=== PATIENT | female | born 1950 | race Caucasian/White ===

== ENCOUNTER 2017-04-06 08:25 | Outpatient (CLI) | payer MEDICARE ==
--- NOTE | 2017-04-06 10:06 | PRG ---
DATE OF SERVICE: 04/06/2017 HISTORY: Ms. Angie Marte is a very pleasant 66-year-old accompanied by her who pres ents to the [facility] for evaluation of multiple ulcerations of the right and left feet. For the ulceration over the dorsum of the left foot, the patient has completed a course of treatment with M atriStem. The patient has no complaints today. She denies any fever or chills. PHYSICAL EXAMINATION: VITAL SIGNS: Temperature 98.7, pulse 62, respirations 18, and blood pressure 180/85. EXTREMITIES: The ulceration over the dorsum of the left foot measures approximately 2.5 x 1.6 cm. The dimensions of the wound at the time of the patient's visit on 03/30/2017 were approximately 2.8 x 1.5 cm. The ulceration over the dorsum of the right foot measures approximately 2.2 x 1.1 cm. Th e dimensions of this wound at the time of the patient's last visit were 2.0 x 1.5 cm. Both wounds a re granulating. No purulent drainage is associated with either wound. No erythema of the skin surr ounding either wound is present. No maceration of the skin of the periwound of either wound is note d. No significant edema of the right or left foot is present on exam today. The ulceration over th e right heel is healing without complications or any signs of infection. The ulceration over the le ft heel has healed completely and remains healed. ASSESSMENT AND PLAN: 1. Ulcerations of right and left feet as described above. For the ulcerations of the right and lef t feet, Adaptic touch will be applied to the wounds followed by Webril and the [employer] Coban 2 layer comp ression systems applied without tension. I will see Ms. Marte again in 1 week. As stated above, the patient has completed a course of treatment with MatriStem for the ulceration over the dorsum of the left foot. 2. Hypertension. 3. Paraplegia. 4. Sjogrens.
[2017-04-06] MEDS ORDERED: Sodium Chloride 0.9% 15 ML NEB ONE (18:51)
== END 2017-04-06 08:26 | disposition home or self-care (01) ==
LOC: WCC 08:25
PROVIDERS: ATTEND Family Medicine
DX: L97.529 Non-pressure chronic ulcer of other part of left foot with unspecified severity (principal); L97.519 Non-pressure chronic ulcer of other part of right foot with unspecified severity; I10 Essential (primary) hypertension; G82.20 Paraplegia, unspecified; M35.00 Sjogren syndrome, unspecified
CPT/HCPCS: 29581; A4218

== ENCOUNTER 2017-04-13 08:43 | Outpatient (CLI) | payer MEDICARE ==
--- NOTE | 2017-04-13 10:13 | PRG ---
DATE OF SERVICE: 04/13/2017 HISTORY: Ms. Angie Marte is a very pleasant 66-year-old accompanied by her who pres ents to the [facility] Center for evaluation of multiple ulcerations of the right and left feet. For the ulceration over the dorsum of the left midfoot the patient has completed a course of treatment with MatriStem. The patient has no complaints today. She denies any fever or chills. PHYSICAL EXAMINATION: VITAL SIGNS: Temperature 97.9, pulse 67, respirations 18, blood pressure 176/76. EXTREMITIES: The ulceration over the dorsum of the left foot measures approximately 2.2 x 1.5 cm. The dimensions of the wound at the time of the patient's visit on 04/06/2017 were approximately 2.5 x 1.6 cm. The ulceration over the dorsum of the right foot measures approximately 1.6 x 1.2 cm. Th e dimensions of the wound at the time of the patient's last visit were approximately 2.2 x 1.1 cm. Both wounds are granulating. No purulent drainage is associated with either wound. No erythema of the skin surrounding either wound is present. No maceration of the skin of the periwound of either wound is noted. Edema of the left foot is present on exam today. The ulcerations over the right an d left heels have healed completely. ASSESSMENT AND PLAN: 1. Ulcerations of right and left feet as described above. For the ulcerations of the right and lef t feet Adaptic touch will be applied to the wound followed by Webril and the 3M Coban 2 layer compre ssion system applied without tension. I will see Ms. Marte again in 1 week. As stated above, the patient has completed a course of treatment with MatriStem for the ulceration over the dorsum of th e left foot. 2. Hypertension. 3. Paraplegia. 4. Sjogren's.
[2017-04-13] MEDS ORDERED: Sodium Chloride 0.9% 15 ML NEB ONE (11:11)
== END 2017-04-13 08:44 | disposition home or self-care (01) ==
LOC: WCC 08:43
PROVIDERS: ATTEND Family Medicine
DX: L97.529 Non-pressure chronic ulcer of other part of left foot with unspecified severity (principal); L97.519 Non-pressure chronic ulcer of other part of right foot with unspecified severity; I10 Essential (primary) hypertension; G82.20 Paraplegia, unspecified; M35.00 Sjogren syndrome, unspecified
CPT/HCPCS: 97602; A4218

== ENCOUNTER 2017-04-20 08:24 | Outpatient (CLI) | payer MEDICARE ==
--- NOTE | 2017-04-20 09:52 | PRG ---
DATE OF SERVICE: 04/20/2017 HISTORY: Ms. Angie Marte is a very pleasant 66-year-old, accompanied by her , who pr esents to the Wound Center for evaluation of multiple ulcerations of the right and left feet. For t he ulceration over the dorsum of the left midfoot, the patient has completed a course of treatment w rosa Abbott. Ms. Marte has no complaints today. She denies any fever or chills. PHYSICAL EXAMINATION: VITAL SIGNS: Temperature 98.1, pulse 62, respirations 18, blood pressure 186/82. EXTREMITIES: The ulceration over the dorsum of the left foot measures approximately 1.8 x 1.3 cm. The dimensions of the wound at the time of the patient's visit on 04/13/2017 were approximately 2.2 x 1.5 cm. The ulceration over the dorsum of the right foot measures approximately 1.5 x 1.3 cm. Th e dimensions of the wound at the time of the patient's last visit were approximately 1.6 x 1.2 cm. Both wounds are granulating. No purulent drainage is associated with either wound. No erythema of the skin surrounding either wound is present. No maceration of the skin of the periwound of either wound is noted. Dorsalis pedis pulse is palpable on the right and on the left. Edema of the left f oot is again noted on exam today. The ulcerations over the right and left heels have healed complet noemí and remain healed. ASSESSMENT AND PLAN: 1. Ulcerations of right and left feet as described above. For the ulcerations of the right and lef t feet, Adaptic Touch will be applied to the wounds, followed by Webril and the [employer] 2 layer com pression system applied without tension. I will see Ms. Marte again in 1 week. As stated above, the patient has completed a course of treatment with MatriStem for the ulceration over the dorsum of the left foot. The patient has been instructed to continue to utilize her Heelift boots at all sal es. 2. Hypertension. 3. Paraplegia. 4. Sjogren's.
[2017-04-20] MEDS ORDERED: Sodium Chloride 0.9% 15 ML NEB ONE (16:23)
== END 2017-04-20 08:25 | disposition home or self-care (01) ==
LOC: WCC 08:24
PROVIDERS: ATTEND Family Medicine
DX: L97.519 Non-pressure chronic ulcer of other part of right foot with unspecified severity (principal); L97.529 Non-pressure chronic ulcer of other part of left foot with unspecified severity; I10 Essential (primary) hypertension; G82.20 Paraplegia, unspecified; M35.00 Sjogren syndrome, unspecified
CPT/HCPCS: 29581; A4218

== ENCOUNTER 2017-04-27 08:41 | Outpatient (CLI) | payer MEDICARE ==
--- NOTE | 2017-04-27 09:59 | PRG ---
DATE OF SERVICE: 04/27/2017 HISTORY: Ms. Angie Marte is a very pleasant 67-year-old accompanied by her who pres ents to the [facility] Center for evaluation of multiple ulcerations of the right and left feet. For the ulceration over the dorsum of the left midfoot, the patient has completed a course of treatment wit h MatriStem. The patient has no complaints today. She denies any fever or chills. PHYSICAL EXAMINATION: VITAL SIGNS: Temperature 98.1, pulse 68, respirations 18, blood pressure 181/77. EXTREMITIES: The ulceration over the dorsum of the left foot measures approximately 1.5 x 1.0 cm. The dimensions of the wound at the time of the patient's visit on 04/20/2017 were approximately 1.8 x 1.3 cm. The ulceration over the dorsum of the right foot measures approximately 1.5 x 1.0 cm. Th e dimensions of the wound at the time of the patient's last visit were approximately 1.5 x 1.3 cm. Both wounds are granulating. No purulent drainage is associated with either wound. No erythema of the skin surrounding either wound is present. No maceration of the skin of the periwound of either wound is noted. Edema of the right and left feet is again noted on exam today. Ulcerations over th e right and left heels have healed completely and remain healed. ASSESSMENT AND PLAN: 1. Ulcerations of right and left feet as described above. For the ulcerations of the right and lef t feet, Adaptic Touch will be applied to the wound followed by Webril and the 3M Coban 2 layer compr ession system applied without tension. I will see Ms. Marte again in two weeks. The patient will return to the Wound Center in 1 week for a dressing change of Adaptic Touch, Webril, and 3M Coban 2 layer compression system applied without tension for the ulcerations of the right and left feet. A s stated above, the patient has completed a course of treatment with MatriStem for the ulceration ov er the dorsum of the left foot. The patient has been reminded to continue to utilize her Heelift duglas ot at all times. 2. Hypertension. 3. Paraplegia. 4. Sjogren's.
== END 2017-04-27 08:42 | disposition home or self-care (01) ==
LOC: WCC 08:41
PROVIDERS: ATTEND Family Medicine
DX: L97.529 Non-pressure chronic ulcer of other part of left foot with unspecified severity (principal); L97.519 Non-pressure chronic ulcer of other part of right foot with unspecified severity; I10 Essential (primary) hypertension; G82.20 Paraplegia, unspecified; M35.00 Sjogren syndrome, unspecified
CPT/HCPCS: 29581

== ENCOUNTER 2017-05-04 08:57 | Outpatient (CLI) | payer MEDICARE ==
[2017-05-04] MEDS ORDERED: Sodium Chloride 0.9% 15 ML NEB ONE (16:57)
== END 2017-05-04 08:58 | disposition home or self-care (01) ==
LOC: WCC 08:57
PROVIDERS: ATTEND Family Medicine
DX: L97.529 Non-pressure chronic ulcer of other part of left foot with unspecified severity (principal); L97.519 Non-pressure chronic ulcer of other part of right foot with unspecified severity
CPT/HCPCS: 29581; A4218

== ENCOUNTER 2017-05-11 08:43 | Outpatient (CLI) | payer MEDICARE ==
--- NOTE | 2017-05-11 10:30 | PRG ---
DATE OF SERVICE: 05/11/2017 HISTORY: Ms. Angie Marte is a very pleasant 67-year-old accompanied by her who pres ents to the [facility] Center for evaluation of multiple ulcerations of the right and left feet. For the ulceration over the dorsum of the left midfoot, the patient has completed a course of treatment wit h MatriStem. The patient has no complaints today. She denies any fever or chills. PHYSICAL EXAMINATION: VITAL SIGNS: Temperature 97.5, pulse 60, respirations 18, blood pressure 123/59. EXTREMITIES: The ulceration over the dorsum of the left foot measures approximately 1.5 x 0.9 cm. The dimensions of the wound at the time of the patient's visit on 04/27/2017 were approximately 1.5 x 1.0 cm. The ulceration over the dorsum of the right foot measures approximately 0.8 x 0.6 cm. Th e dimensions of the wound at the time of the patient's visit on 04/27/2017 were approximately 1.5 x 1.0 cm. Both wounds are granulating. No purulent drainage is associated with either wound. No tameka thema of the skin surrounding either wound is present. No maceration of the skin of the periwound o f either wound is noted. A dorsalis pedis pulse is palpable on the right and on the left. Edema of the right and left feet is again noted on today's exam. The ulcerations over the right and left he els have healed completely and remain healed. ASSESSMENT AND PLAN: 1. Ulcerations of right and left feet as described above. For the ulcerations of the right and lef t feet, Adaptic catch will be applied to the wounds followed by Webril and the [employer] Coban 2 layer comp ression system applied without tension. I will see Ms. Matre again in 1 week. As stated above, t he patient has completed a course of treatment with MatriStem for the ulceration over the dorsum of the left foot. The patient has been reminded to continue to utilize her Heelift boot at all times. 2. Hypertension. 3. Paraplegia. 4. Sjogrens.
[2017-05-11] MEDS ORDERED: Sodium Chloride 0.9% 15 ML NEB ONE (17:30)
== END 2017-05-11 08:44 | disposition home or self-care (01) ==
LOC: WCC 08:43
PROVIDERS: ATTEND Family Medicine
DX: L97.429 Non-pressure chronic ulcer of left heel and midfoot with unspecified severity (principal); L97.419 Non-pressure chronic ulcer of right heel and midfoot with unspecified severity; G82.20 Paraplegia, unspecified; M35.00 Sjogren syndrome, unspecified; I10 Essential (primary) hypertension
CPT/HCPCS: 29581; A4218

== ENCOUNTER 2017-05-18 08:55 | Outpatient (CLI) | payer MEDICARE ==
--- NOTE | 2017-05-18 10:45 | PRG ---
DATE OF SERVICE: 05/18/2017 HISTORY: Ms. Angie Marte is a very pleasant 67-year-old accompanied by her who presents to the [facility] Center for evaluation of multiple ulcerations of the right and left feet. For the ulceration over the dorsum of the left foot, the patient has completed a course of treatment with MatriStem. Ms. Marte has no complaints today. She denies any fever or chills. PHYSICAL EXAMINATION: VITAL SIGNS: Temperature 97.6, pulse 57, respirations 17, blood pressure 192/ 80. EXTREMITIES: The ulceration over the dorsum of the left foot measures approximately 1.0 x 0.8 cm. The dimensions of the wound at the time of the patient's visit on 05/11/2017 were approximately 1.5 x 0.9 cm. The ulceration over the dorsum of the right foot measures approximately 1.2 x 0.9 cm. The dimensions of the wound at the time of the patient's visit on 05/11/2017 were approximately 0.8 x 0.6 cm. Both wounds are granulating. No purulent drainage is associated with either wound. No erythema of the skin surrounding either wound is present. No maceration of the skin of the periwound of either wound is noted. Edema of the right and left feet is again noted on exam today. The ulcerations over the right and left heels have healed completely and remain healed. ASSESSMENT AND PLAN: 1. Ulcerations of right and left feet as described above. For the ulcerations of the right and left feet, Adaptic touch will be applied to the wounds followed by Webril and the 3M Coban 2-layer compression system applied without tension. I will see Ms. Marte again in 1 week. As stated above, the patient has completed a course of treatment with MatriStem for the ulceration over the dorsum of the left foot. The patient has been reminded to continue to utilize her Heelift boots at all times. 2. Hypertension. 3. Paraplegia. 4. Sjogren's. MTDD
[2017-05-18] MEDS ORDERED: Sodium Chloride 0.9% 15 ML NEB ONE (17:50)
== END 2017-05-18 08:56 | disposition home or self-care (01) ==
LOC: WCC 08:55
PROVIDERS: ATTEND Family Medicine
DX: L97.519 Non-pressure chronic ulcer of other part of right foot with unspecified severity (principal); L97.529 Non-pressure chronic ulcer of other part of left foot with unspecified severity; I10 Essential (primary) hypertension; G82.20 Paraplegia, unspecified; M35.00 Sjogren syndrome, unspecified
CPT/HCPCS: 29581; A4218

== ENCOUNTER 2017-06-01 08:30 | Outpatient (CLI) | payer MEDICARE ==
[~2017-06-01 08:30] MED LIST: Sodium Chloride 0.9% 15 ML NEB ONE
--- NOTE | 2017-06-01 10:40 | PRG ---
DATE OF SERVICE: 06/01/2017 HISTORY: Ms. Angie Marte is a very pleasant 67-year-old accompanied by her who presents to the [facility] Center for evaluation of multiple ulcerations of the right and left feet. For the ulce ration over the dorsum of the left foot the patient has completed a course of treatment with MatriSte m sheet. The patient has no complaints today. She denies any fever or chills. PHYSICAL EXAMINATION: VITAL SIGNS: Temperature 97.6, pulse 58, respirations 17, blood pressure 165/70. EXTREMITIES: The ulceration over the dorsum of the left foot measures approximately 0.7 x 0.6 cm. T he dimensions of the wound at the time of the patient's visit on 05/25/2017 were approximately 0.8 x 0.7 cm. The ulceration over the dorsum of the right foot measures approximately 0.5 x 0.5 cm. The d imensions of the wound at the time of the patient's visit on 05/25/2017 were approximately 0.7 x 0.8 cm. No purulent drainage is associated with either wound. No erythema of the skin surrounding eithe r wound is present. No maceration of the skin of the periwound of either wound is noted. Edema of t he right and left feet is again present on exam today. ASSESSMENT AND PLAN: 1. Ulcerations of right and left feet as described above. For the ulcerations of the right and left feet, MatriStem powder 20 mg was divided and placed to both wounds followed by Adaptic, Webril, and 3M Coban 2 layer compression system applied without tension. The patient will return to the Wound Ce nter in 1 week for a dressing change of Adaptic, Webril, and 3M Coban 2 layer compression system appl ied without tension to each wound. I will see Ms. Marte again in 2 weeks. The patient has been re minded to continue to utilize her Heelift boots at all times. 2. Lymphedema tarda. The patient continues to experience edema of the lower extremities, despite el evation and treatment with 3M Coban 2 layer compression system. Arrangements will be made for the in itiation of in-home lymphedema treatment with a pneumatic pump. 3. Hypertension. 4. Paraplegia. 5. Sjogren's.
== END 2017-06-01 08:31 | disposition home or self-care (01) ==
LOC: WCC 08:30
PROVIDERS: ATTEND Family Medicine
DX: L97.519 Non-pressure chronic ulcer of other part of right foot with unspecified severity (principal); L97.529 Non-pressure chronic ulcer of other part of left foot with unspecified severity; I89.0 Lymphedema, not elsewhere classified; G82.20 Paraplegia, unspecified; M35.00 Sjogren syndrome, unspecified; I10 Essential (primary) hypertension
CPT/HCPCS: 97139; 97602; Q4118; A4218

== ENCOUNTER 2017-06-12 08:38 | Outpatient (CLI) | payer MEDICARE ==
--- NOTE | 2017-06-12 09:40 | PRG ---
DATE OF SERVICE: 06/12/2017 HISTORY: Ms. Angie Marte is a very pleasant 67-year-old accompanied by her who presents to the [facility] Center for evaluation of multiple ulcerations of the right and left feet. For the ulce ration over the dorsum of the left foot, the patient has completed a course of treatment with MatriSt matilde donnelly. The patient has no complaints today. She denies any fever or chills. PHYSICAL EXAMINATION: VITAL SIGNS: Temperature 97.5, pulse 54, respirations 16, blood pressure 167/74. EXTREMITIES: The ulceration over the dorsum of the left foot measures approximately 0.7 x 0.6 cm. T he ulceration over the dorsum of the right foot measures approximately 1.1 x 1.0 cm. No purulent arlette inage is associated with either wound. No erythema of the skin surrounding either wound is present. No maceration of the skin of the periwound of either wound is noted. A posterior tibial pulse is ea sily palpable on the left. A dorsalis pedis pulse is easily palpable on the right. No significant e tono of the right or left foot is present on exam today. ASSESSMENT AND PLAN: 1. Ulcerations of right and left feet as described above. Adaptic, Webril, and 3M Coban two-layer c ompression system will be applied without tension to each wound. I will see Ms. Marte again on 01/2017. The patient has been reminded to continue to utilize her Heelift boots at all times. 2. Lymphedema tarda. Arrangements will continue for the initiation of in-home lymphedema treatment with a pneumatic pump. 3. Hypertension. 4. Paraplegia. 5. Sjogrens.
[2017-06-12] MEDS ORDERED: Sodium Chloride 0.9% 15 ML NEB ONE (17:45)
== END 2017-06-12 08:39 | disposition home or self-care (01) ==
LOC: WCC 08:38
PROVIDERS: ATTEND Family Medicine
DX: L97.529 Non-pressure chronic ulcer of other part of left foot with unspecified severity (principal); L97.519 Non-pressure chronic ulcer of other part of right foot with unspecified severity; I10 Essential (primary) hypertension; I89.0 Lymphedema, not elsewhere classified; G82.20 Paraplegia, unspecified; M35.00 Sjogren syndrome, unspecified
CPT/HCPCS: 29581; A4218

== ENCOUNTER 2017-06-22 08:13 | Outpatient (CLI) | payer MEDICARE ==
--- NOTE | 2017-06-22 09:12 | PRG ---
DATE OF SERVICE: 06/22/2017 HISTORY: Ms. Angie Marte is a very pleasant 67-year-old accompanied by her , who present s to the [facility] Center for evaluation of multiple ulcerations of the right and left feet for the ulcer ation over the dorsum of the left midfoot. The patient has completed a course of treatment with Matr iStem sheet. Ms. Marte has no complaints today. She denies any fever or chills. PHYSICAL EXAMINATION: VITAL SIGNS: Temperature 97.5, pulse 58, respirations 16, blood pressure 146/74. EXTREMITIES: The ulceration over the dorsum of the left foot measures approximately 0.2 x 0.2 cm. T he ulceration over the dorsum of the right foot measures approximately 0.9 x 0.6 cm. No purulent arlette inage is associated with either wound. No erythema of the skin surrounding either wound is present. No maceration of the skin of the periwound of either wound is noted. Pedal edema of the right and l eft feet is present on exam today. ASSESSMENT AND PLAN: 1. Ulcerations of right and left feet as described above. Dressing changes of Adaptic, ABDs followe d by an Eros bandage will be initiated today. These dressing changes are to be performed on a daily b asis after cleansing and irrigation. I will see Ms. Marte again in 2 weeks. The patient has been reminded to continue to utilize her Heelift boots at all times. 2. Lymphedema tarda. Arrangements will continue for the initiation of in-home lymphedema treatment with a pneumatic pump. 3. Hypertension. 4. Paraplegia. 5. Sjogren's.
== END 2017-06-22 08:14 | disposition home or self-care (01) ==
LOC: WCC 08:13
PROVIDERS: ATTEND Family Medicine
DX: L97.529 Non-pressure chronic ulcer of other part of left foot with unspecified severity (principal); L97.519 Non-pressure chronic ulcer of other part of right foot with unspecified severity; I89.0 Lymphedema, not elsewhere classified; I10 Essential (primary) hypertension; G82.20 Paraplegia, unspecified; M35.00 Sjogren syndrome, unspecified
CPT/HCPCS: 97602

== ENCOUNTER 2017-07-06 08:51 | Outpatient (CLI) | payer MEDICARE ==
--- NOTE | 2017-07-06 09:51 | PRG ---
DATE OF SERVICE: 07/06/2017 HISTORY: Ms. Angie Marte is a very pleasant 67-year-old accompanied by her , who present s to the [facility] Center for evaluation of multiple ulcerations of the right and left feet. For the ulc eration over the dorsum of the left midfoot, the patient has completed a course of treatment with Mat riStem sheet. The patient has no complaints today. She denies any fever or chills. PHYSICAL EXAMINATION: VITAL SIGNS: Temperature 97.9, pulse 56, respirations 16, and blood pressure 176/75. EXTREMITIES: The ulceration over the dorsum of the left foot measures approximately 0.2 x 0.1 cm. T he ulceration over the dorsum of the right foot has healed completely. No purulent drainage is assoc iated with either wound. No erythema of the skin surrounding either wound is present. No maceration of the skin of the periwound of either wound is noted. A dorsalis pedis pulse is palpable on the ri ght and on the left. No significant edema of the right or left foot or lower legs is present on exam today. ASSESSMENT AND PLAN: 1. Ulcerations of right and left feet. As stated above, only one wound over the dorsum of the left foot remains. Dressing changes of Adaptic and ABD, followed by an Eros bandage will be continued on a daily basis after cleansing and irrigation. The wound has almost healed completely and Ms. Marte will be discharged from clinic today with followup on a p.r.n. basis. The patient has been instructe d to continue the preceding dressing changes until the ulceration over the dorsum of the left foot waters s healed completely. 2. Lymphedema tarda. The patient states that she is now utilizing her pneumatic pump on a daily bas is for 1 hour for each lower extremity. 3. Hypertension. 4. Paraplegia. 5. Sjogren's.
[2017-07-06] MEDS ORDERED: Sodium Chloride 0.9% 15 ML NEB ONE (21:25)
== END 2017-07-06 08:52 | disposition home or self-care (01) ==
LOC: WCC 08:51
PROVIDERS: ATTEND Family Medicine
DX: L97.519 Non-pressure chronic ulcer of other part of right foot with unspecified severity (principal); L97.529 Non-pressure chronic ulcer of other part of left foot with unspecified severity; I89.0 Lymphedema, not elsewhere classified; I10 Essential (primary) hypertension; M35.00 Sjogren syndrome, unspecified; G82.20 Paraplegia, unspecified
CPT/HCPCS: A4218

== ENCOUNTER 2017-08-08 16:51 | Observation (INO) | payer MEDICARE ==
[2017-08-08 17:44] LABS: #Eosinphils 0.1 thou/uL (0.0-0.7); #Lymphocytes 2.2 thou/uL (1.20-3.40); #Monocytes 0.9 thou/uL (0.11-0.59); #Neutrophils 6.7 thou/uL (1.40-6.50); %Basophils 0.3 % (0.0-1.0); %Eosinophils 1.4 % (0.0-10.0); %Lymphocytes 22.3 % (21.0-51.0); %Monocytes 8.6 % (0.0-10.0); %Neutrophils 67.4 % (42.0-75.0); Mean Corpuscular HGB CONC 32.3 g/dL (32.0-36.0); Mean Corpuscular Hemoglobin 32.1 pg (27.0-31.0); Mean Corpuscular Volume 99.5 fl (81.0-99.0); Mean Platelet Volume 7.3 fL (7.4-10.4); Platelet Count 344 thou/uL (130-400); RBC Distribution Width 13.1 % (11.5-14.5); Red Blood Cell (RBC) Count 4.36 mill/uL (4.20-5.40); White Blood Cell (WBC) Count 9.9 thou/uL (4.8-10.8)
[2017-08-08 18:14] LABS: ALT (SGPT) 23 U/L (8-55); AST (SGOT) 23 U/L (5-34); Alkaline Phosphatase 111 U/L (40-150); Anion Gap 15 mmol/L (10-20); BUN (Urea Nitrogen) 23 mg/dL (9.8-20.1); Bilirubin, Total 0.3 mg/dL (0.2-1.2); Calc. Creatinine Clearance 0 mL/min (70-130); Calcium 10.8 mg/dL (7.8-10.44); Carbon Dioxide 23 mmol/L (23-31); Chloride 103 mmol/L (98-107); Estimated GFR-MDRD 62; Globulin 3.1 g/dL (2.4-3.5); Glucose 92 mg/dL (80-115); Lipase 24 U/L (8-78); Protein, Total 7.1 g/dL (6.0-8.3); Sodium 137 mmol/L (136-145)
--- NOTE | 2017-08-08 21:29 | RAD ---
PORTABLE CHEST 08/08/17 PROVIDED CLINICAL HISTORY: Altered mental status. FINDINGS: Comparison 04/08/17. The cardiac and mediastinal silhouette is unchanged in appearance. Vascular calcification involves th e aortic arch. No focal consolidation, pleural fluid or pneumothorax apparent. IMPRESSION: No evidence for an acute cardiopulmonary process. POS: CET
--- NOTE | 2017-08-08 22:59 | ULT ---
RIGHT LOWER EXTREMITY VENOUS DOPPLER 08/08/17 PROVIDED CLINICAL HISTORY: Right leg pain. FINDINGS: Bazzi scale and color doppler sonography with spectral analysis was performed of the right common femo ral, femoral, popliteal, posterior tibial, greater saphenous and profunda femoral veins, demonstratin g a normal sonographic appearance to each. There is a circumscribed hypoechoic elliptical mass presen t at the medial aspect of the right calf measuring about 10.4 cm in craniocaudal dimension and about 2.8 cm in transverse dimension. This demonstrates no definite internal flow. A smaller similar struct ures overlies the anterior right tibia measuring approximately 4.7 cm. Additional such structure is p resent at the lateral aspect of the right calf measuring about 6.2 cm. IMPRESSION: 1. No evidence for right lower extremity deep venous thrombosis. 2. Multiple circumscribed hypoechoic masses/complex fluid collections involving the right forele g. Correlation with concerns for abscess recommended. POS: CET
[2017-08-09 02:05] VITALS: BMI 26.1
[2017-08-09] MEDS ORDERED: Ondansetron ODT 4 MG TAB PO PRN (02:40)
[2017-08-09 05:12] LABS: #Eosinphils 0.2 thou/uL (0.0-0.7); #Lymphocytes 1.9 thou/uL (1.20-3.40); #Monocytes 1.1 thou/uL (0.11-0.59); #Neutrophils 5.8 thou/uL (1.40-6.50); %Basophils 0.5 % (0.0-1.0); %Eosinophils 1.7 % (0.0-10.0); %Lymphocytes 20.9 % (21.0-51.0); %Neutrophils 64.8 % (42.0-75.0); Hemoglobin 12.5 g/dL (12.0-16.0); Mean Corpuscular HGB CONC 32.8 g/dL (32.0-36.0); Mean Corpuscular Hemoglobin 32.5 pg (27.0-31.0); Mean Corpuscular Volume 98.9 fl (81.0-99.0); Platelet Count 315 thou/uL (130-400); RBC Distribution Width 12.9 % (11.5-14.5); Red Blood Cell (RBC) Count 3.83 mill/uL (4.20-5.40)
[2017-08-09 05:27] LABS: Anion Gap 12 mmol/L (10-20); BUN (Urea Nitrogen) 21 mg/dL (9.8-20.1); Calc. Creatinine Clearance 71 mL/min (70-130); Calcium 9.5 mg/dL (7.8-10.44); Carbon Dioxide 26 mmol/L (23-31); Chloride 105 mmol/L (98-107); Estimated GFR-MDRD 70; Glucose 111 mg/dL (80-115); Potassium 3.8 mmol/L (3.5-5.1); Sodium 139 mmol/L (136-145)
--- NOTE | 2017-08-09 06:13 | HP-2 ---
ADMISSION DATE: 08/09/2017 CODE STATUS: FULL. PRIMARY CARE PHYSICIAN: Dr. Rachel Gutierrez in [place]. ATTENDING: Dr. Marianne Mills. RESIDENT: Dr. Poly Abreu. HISTORIAN: Self. CHIEF COMPLAINT: Right lower extremity swelling. HISTORY OF PRESENT ILLNESS: A 67-year-old female with past medical history of paraplegia secondary t o a T12 burst fracture, hypertension, Sjogren's syndrome, chronic lower extremity ulcers who presents with right lower extremity swelling once for the past one and a half weeks. The patient was started on Levaquin and clindamycin by her PCP about 8 days ago and has completed Levaquin, but still has a few days of the clindamycin. She reports that she has not had any improvement in her symptoms. She has never had any swelling in her legs like this before. She does have chronic lymphedema that prese nts as swelling predominantly in her feet and however, it has never progressed thus far per her age o r looks like this in the past. She has had fever to 101 about 1 week ago just for 1 day. She has waters d no pain in her leg, but the patient has no feeling from the waist down at baseline from her acciden t about 1 year ago. She had blisters that popped up on the top of her right leg about 3-4 days ago. In the ER, she was given vancomycin 1 gram. PAST MEDICAL HISTORY: 1. Paralyzed from the waist down secondary to T12 burst fracture on 07/2016. 2. Hypertension. 3. Sjogren's syndrome. 4. Depression. PAST SURGICAL HISTORY: Left carpal tunnel surgery, kidney surgery, bunion surgeries, left arm surger y. ALLERGIES: AMBIEN, AMOXICILLIN causes hives, SULFA causes gastrointestinal upset, CODEINE. MEDICATIONS: 1. Quinapril 40 mg daily. 2. Biotin. 3. Aspirin 81 mg daily. 4. Gabapentin 400 mg 2 tabs b.i.d. 5. Andrews 5/325 mg q.8 hours p.r.n. 6. Bupropion 300 mg q.a.m. 7. Seroquel 50 mg at bedtime. 8. Fluoxetine 20 mg daily. 9. Restasis twice daily. 10. Temazepam at bedtime. 11. Tramadol p.r.n. pain. FAMILY HISTORY: Dad has leukemia. Mom with pancreatic cancer. SOCIAL HISTORY: Former tobacco user, smoked less than 10 pack years. Denies alcohol or drug use. T he patient lost her son in 2013. REVIEW OF SYSTEMS: General: Positive for fever, chills. Negative for fatigue. Eyes: Negative for vision changes or eye pain. ENT: Negative for nasal congestion, rhinorrhea, sore throat. Respirat ory: Negative for cough, shortness of breath. Cardiovascular: Negative for chest pain. Positive f or edema. GI: Positive for nausea. Negative for vomiting, diarrhea, constipation. Positive for ab dominal pain. GENITOURINARY: Positive for incontinence at baseline. Skin: Positive for rashes and lesions, negative for itching. Musculoskeletal: Positive for pain. Negative for tenderness. Neur ologic: Positive for weakness and numbness. PHYSICAL EXAMINATION: VITAL SIGNS: Her blood pressure 141/65, pulse 59, respiratory rate 18, temperature 98.5, pulse ox 98 % on room air. Current weight 68 kilograms. GENERAL: Alert and oriented x3, no acute distress, well-nourished, appropriately interactive. HEENT: PERRLA. Extraocular muscles intact. Conjunctivae within normal limits. ENT: Nasal mucosa and oropharynx within normal limits. NECK: Supple, no lymphadenopathy. CARDIOVASCULAR: Regular rate and rhythm. No murmurs or gallops, 2+ radial pulses, difficult to palp ate pedal pulses due to swelling. RESPIRATORY: Normal effort, no retractions, clear to auscultation bilaterally. SKIN: Warm and dry. No cyanosis. Right lower extremity erythema, edema, and warmth with overlying hexagonal blisters. Unable to palpate any areas of fluctuance. Edema was pitting up to the mid ibarra and erythema extended from just above the ankle to a few centimeters below the knee. ABDOMEN: Soft, mildly tender to palpation, diffusely with no rebound or guarding. Normoactive bowel sounds. No mass or distention. EXTREMITIES: No cyanosis. 2+ pitting edema on the right lower extremity to the mid ibarra, trace emili ing edema on the left foot. MUSCULOSKELETAL: Decreased tone in bilateral lower extremities, 0/5 muscle strength in bilateral low er extremities. NEUROLOGIC: No sensation in the lower extremities, clonus in bilateral lower extremities. Positive Babinski, 4/4 deep tendon reflexes in bilateral lower extremities. Cranial nerves II through XII int act. GCS 15. PSYCHIATRIC: Appropriate. LABORATORY DATA: WBC 9.9, hemoglobin 14.0, hematocrit 43.4, platelets 344. Sodium 137, potassium 4, chloride 103, CO2 of 23, BUN 23, creatinine 0.9, GFR 62, glucose 92, calcium 10.8, AST 23, ALT 23, a lkaline phosphatase 111, total bilirubin 0.3, lactic acid 0.9, lipase 24. Chest x-ray showed no evid ence of acute cardiopulmonary process. Right lower extremity Doppler that showed no evidence of DVT, but showed multiple hypoechoic masses/complex fluid collections involving the right foreleg. Correl ation with concern for abscess is recommended. ASSESSMENT AND PLAN: This is a 67-year-old female who presents with: 1. Right lower extremity cellulitis. Patient has failed outpatient therapy with clindamycin and Lev aquin. There is concern for underlying abscesses with these complex fluid collection seen on lower e xtremity Doppler ultrasound. Differential diagnosis is cellulitis with abscesses versus erythema nod osum or other vasculitis versus autoimmune. With the patient's history of Sjogren's syndrome versus lichen planus with the overlying polygonal lesions versus worsening lymphedema; however, less likely as it is only on one side. We will start treatment with vancomycin. We will check blood cultures an d ESR. We will consult Dr. Parra in the morning as this does not appear to be straightforward cellul itis. The patient may need a general surgery consult if the fluid collections do appear to be absces ses and require I and D. 2. Paraplegia secondary to T12 burst fracture. Patient has been paralyzed from the waist down since injury in 07/2016, she has good upper body strength, but needed assistance with transferring. We wi ll continue home meds for pain and sleep. The patient's lack of sensation in her lower extremity neyda ing a diagnosis on her disease process more difficult. 3. Hypertension. This is well controlled. We will continue home medications. 4. Sjogren's syndrome. The patient uses Restasis drops daily, but is not currently on any oral medi cation. She was taking hydroxychloroquine, but was taken off this. With the patient's autoimmune hi story, we will watch for any correlation with this current disease process. 5. Depression. The patient lost her son in 2013 and has had depression since this time. We will co ntinue her home meds. She appears stable at this time. 6. Chronic kidney disease stage 2. Patient appears near baseline, tolerating p.o. well. Encourage p.o. intake and monitor. The patient was having some nausea with her oral antibiotics. We will give p.r.n. Zofran, if the patient has nausea with the vancomycin. 7. VTE prophylaxis. Lovenox. DISPOSITION AND LENGTH OF HOSPITAL STAY: Obs on medical likely 1-2 days. Symptomatic medications wi ll be provided. History and physical exam as well as management discussed with Dr. Mills.
[2017-08-09] MEDS: HYDROcodone/Acetaminophen 5/325 mg Tablet PO PRN ×2 (08:22→17:56)
[2017-08-09] MEDS: Aspirin 81 mg Enteric Coated Tablet PO SCH (08:24)
[2017-08-09] MEDS: Gabapentin 400 MG CAP PO SCH ×2 (08:24→20:42)
[2017-08-09] MEDS: Enoxaparin Sodium 40 MG/0.4 ML SYRINGE SC SCH (08:25)
[2017-08-09] MEDS: Bupropion 150 MG XL TAB PO SCH (08:25)
[2017-08-09] MEDS: FLUoxetine HCl 20 MG CAP PO SCH (08:27)
[2017-08-09] MEDS ORDERED: Vancomycin HCl 1 GM in Premix Bag 1 BAG IVPB SCH (09:00)
[2017-08-09] MEDS: cycloSPORINE 0.05% Ophthalmic Droperette EA EYE SCH ×3 (10:22→20:43)
[2017-08-09] MEDS: Vancomycin HCl 1 GM in Premix Bag 1 BAG IVPB SCH (11:52)
[2017-08-09 11:53] LABS: INR-International Normal Ratio 1.1; Prothrombin Time 13.9 SEC (12.0-14.7)
[2017-08-09 11:54] LABS: PTT 36.2 SEC (22.9-36.1)
--- NOTE | 2017-08-09 12:38 | HP ---
DATE OF SERVICE: 08/09/2017 CHIEF COMPLAINT: Right lower extremity swelling. HISTORY OF PRESENT ILLNESS: The patient is a 67-year-old female with a past medical history of parap legia secondary to T12 burst fracture about a year ago, hypertension, Sjogren syndrome, and chronic l ower extremity ulcers, who presented to the ER with right lower extremity swelling for 7-10 days. Sabas middleton has seen her PCP as an outpatient and was started on oral antibiotics including Levaquin and cl indamycin. She did not see any improvement and the swelling seemed to worsen. She has some chronic lymphedema, but the swelling is more than what her baseline is. In the ER, she had an ultrasound nicole t showed no evidence of DVT, but multiple hypoechoic masses and complex fluid collections in the righ t foreleg. The patient has been started on vancomycin. She denies any complaints this morning, but is concerned about the swelling in her legs. The patient will be continued on vancomycin and Dr. Derek gentile has been consulted. We will also get Interventional Radiology to see if they can pull also the fl uid in one of the pockets to test. We will also consult Wound Care and restart home medications. I have reviewed history and physical with Dr. Poly Abreu and discuss the case in detail. I repeated p ertinent portions of the history and physical exam and agree with her documentation. Please see her dictation for the full history and physical and assessment and plan.
--- NOTE | 2017-08-09 17:39 | CON ---
DATE OF CONSULTATION: 08/09/2017 REASON FOR CONSULTATION: Possible cellulitis, right leg. HISTORY OF PRESENT ILLNESS: A 67-year-old patient that I had seen in November of last year when she prese nted with a history of Sjogren syndrome and paraplegia following an accident with a horse. Patient w ears an orthotic boot for the right and left feet and developed ulcers. I was asked to evaluate thos e ulcers and the impression was that she had traumatic ulcers in the feet associated with tight fitti ng orthotic and cellulitis associated with it. The patient was given antimicrobials. She had an liliane luation by Dr. Villalobos regarding her vascular status and he felt that there was evidence of normal circ ulation. No need for a further intervention was recommended. Since then, the ulcers have markedly i mproved and healed almost flush against the surface previous exposure of the tendon has resolved and this time she was brought in with worsening right lower extremity swelling. She had been given oral antimicrobials with Levaquin and clindamycin without improvement. She had an ultrasound which showed hypoechoic areas which reflected fluid collections in the leg. She said she had some fever document ed I do not find it here in the record. No headaches, visual symptoms, sore throat, odynophagia, dys phagia, no cough or sputum production, or chest pain, no vomiting, hematemesis, melena, hematochezia. No diarrhea. PAST MEDICAL HISTORY: Hypertension, Sjogren's syndrome, biopsy proven, paraplegia following fall fro m a horse, ulcers in the lower extremities from tight fitting Orthotics which have almost completely healed since November of last year. PAST SURGICAL HISTORY: Left knee surgery, bunionectomies. CURRENT MEDICATIONS: Hydrocodone, aspirin, Wellbutrin, Lovenox, Prozac, Neurontin, Zofran, Seroquel, Accupril, and vancomycin. ALLERGIES: CODEINE, AMOXICILLIN, SULFA DRUGS. SOCIAL HISTORY: Former smoker, lives in [place] with her . FAMILY HISTORY: Diabetes. PHYSICAL EXAMINATION: SKIN: Examination shows the marked improvement in the appearance of the ulcers in the right and left feet and they almost completely healed, little bit of scabbing at the base. She has edema in the ri ght leg, but no obvious erythema noted. No lymphadenopathy. HEENT: Ocular movements are conjugate. Sclerae white. Pupils are equal. Oral cavity normal. NECK: Supple. LUNGS: With symmetric clear breath sounds. HEART: S1, S2, regular rate. No S3 or S4. ABDOMEN: Soft, not distended or tender. No ascites. No bladder distention. EXTREMITIES: The right leg has an area which has the cystic feel on palpation close to the medial as pect of the right leg right below the patella/knee region, right side. After cleaning the area and u sing 22 gauge needle, I was able to aspirate which appeared to be fresh blood from the area kind of d ark colored. I was able to aspirate about 5 mL of blood from the site. LABORATORY DATA AND IMAGING: The white cell count is 9.9, hemoglobin 14, platelets 344. INR was 1.1 and chemistry was not remarkable except for calcium 10.8, now 9.5. Two sets of blood cultures have been submitted and she has a chest x-ray which did not show any infiltrates and has this vascular ult rasound which demonstrated hypoechoic complex fluid collections in the right foreleg. ASSESSMENT: 1. Paraplegia following horse accident. 2. Marked improvement in previously noted ulcers in November last year. 3. Hypoechoic fluid collection associated with swelling of the right leg. DISCUSSION: The fluid obtained from the cystic area in the right leg is a hemorrhagic fluid and I waters ve submitted for cell count and cultures. It does not appear purulent and I would presume that this is not an infected fluid. It is not clear why she has developed this, but I inquired her about any t rauma to the right leg and she denied recalling any such event, although she has no sensation in the right leg and one could conceivably envision this situation where she was hit, but did not realize it , so it is most likely this is going to jewel bearing turner not to be an infectious process in the all traumatic in nature with those areas of hematoma formation.
[2017-08-10] MEDS: Vancomycin HCl 1 GM in Premix Bag 1 BAG IVPB SCH ×2 (00:24→12:12)
[2017-08-10 03:09] LABS: BF Color Red; Clarity Cloudy/Turbid (Clear); Tube # EDTA
[2017-08-10 03:10] LABS: RBC Count-Automated 1170000 /cumm; WBC/NonHematic-Auto 6130 /cumm
[2017-08-10 03:12] LABS: BF Segmented Neutrophils 76 %; Cell Count Non Hematic 4 %; Lymphocytes 20 %
[2017-08-10 05:42] LABS: #Eosinphils 0.1 thou/uL (0.0-0.7); #Lymphocytes 1.9 thou/uL (1.20-3.40); #Monocytes 0.8 thou/uL (0.11-0.59); #Neutrophils 2.7 thou/uL (1.40-6.50); %Basophils 0.5 % (0.0-1.0); %Eosinophils 2.4 % (0.0-10.0); %Lymphocytes 33.9 % (21.0-51.0); %Neutrophils 49.2 % (42.0-75.0); Hemoglobin 10.6 g/dL (12.0-16.0); Mean Corpuscular HGB CONC 33.1 g/dL (32.0-36.0); Mean Corpuscular Hemoglobin 33.2 pg (27.0-31.0); Mean Platelet Volume 7.7 fL (7.4-10.4); Platelet Count 276 thou/uL (130-400); White Blood Cell (WBC) Count 5.5 thou/uL (4.8-10.8)
[2017-08-10 05:57] LABS: Anion Gap 12 mmol/L (10-20); BUN (Urea Nitrogen) 15 mg/dL (9.8-20.1); Calc. Creatinine Clearance 68 mL/min (70-130); Calcium 8.7 mg/dL (7.8-10.44); Carbon Dioxide 26 mmol/L (23-31); Chloride 106 mmol/L (98-107); Estimated GFR-MDRD 66; Glucose 81 mg/dL (80-115); Potassium 3.6 mmol/L (3.5-5.1); Sodium 140 mmol/L (136-145)
--- NOTE | 2017-08-10 08:55 | PDOC.FM ---
- Subjective Subjective: Patient doing well overnight, feels swelling in leg has improved overnight. No N /V, CP, SOB. - Objective MAR Reviewed: Yes Vital Signs & Weight: Vital Signs (12 hours) Temp Pulse Resp BP Pulse Ox 08/10/17 04:00 97.9 F 60 18 97/50 L 92 L 08/10/17 00:00 98 F 63 18 106/64 92 L Weight Weight 69.082 kg I&O: 08/09/17 08/10/17 08/11/17 06:59 06:59 06:59 Intake Total 300 1210 Output Total 2 Balance 300 1208 Result Diagrams: 08/10/17 03:50 08/10/17 03:50 <Celso Toure - Last Filed: 08/10/17 08:53> - Objective Vital Signs & Weight: Vital Signs (12 hours) Temp Pulse Resp BP BP Pulse Ox 08/10/17 09:51 112/56 L 08/10/17 04:00 97.9 F 60 18 97/50 L 92 L 08/10/17 00:00 98 F 63 18 106/64 92 L Weight Weight 69.082 kg I&O: 08/09/17 08/10/17 08/11/17 06:59 06:59 06:59 Intake Total 300 1210 Output Total 2 Balance 300 1208 Result Diagrams: 08/10/17 03:50 08/10/17 03:50 <Marianne Mills - Last Filed: 08/10/17 10:50> Phys Exam - Physical Examination Constitutional: NAD HEENT: moist MMs Respiratory: no wheezing, clear to auscultation bilateral Cardiovascular: RRR, no significant murmur Gastrointestinal: soft mild guarding, improved from yesterday Musculoskeletal: pulses present stable Psychiatric: normal affect, A&O x 3 Deviation from normal: erythema on left leg improved <Celso Toure - Last Filed: 08/10/17 08:53> Dx/Plan (1) Leg swelling Code(s): M79.89 - OTHER SPECIFIED SOFT TISSUE DISORDERS Status: Acute Plan: Dr. Parra consulted, recs greatly appreciated Fluid pocket drained yesterday and suspected to be mainly hematoma Will await labs on fluid sample improving today (2) PVD (peripheral vascular disease) Code(s): I73.9 - PERIPHERAL VASCULAR DISEASE, UNSPECIFIED Status: Acute (3) Hypertension Code(s): I10 - ESSENTIAL (PRIMARY) HYPERTENSION Status: Chronic (4) Paraplegia Code(s): G82.20 - PARAPLEGIA, UNSPECIFIED Status: Chronic (5) Sjogrens syndrome Code(s): M35.00 - SICCA SYNDROME, UNSPECIFIED Status: Chronic <Celso Toure - Last Filed: 08/10/17 08:53> Attending Addendum - Attending Addendum I personally evaluated the patient and discussed the management with Dr. Toure. I agree with the History, Examination, Assessment and Plan documented above with any addition or exceptions noted below. The patient is in obs and received an obs letter stating that insurance may not pay for stay and now wants to be discharged. We are waiting on culture results from leg aspiration. Continuing iv antibiotic. Pt should get CT of the leg to better evaluate the posterior mass but if she goes home, this may be done as an outpt. <Marianne Mills - Last Filed: 08/10/17 10:50>
[2017-08-10] MEDS: Aspirin 81 mg Enteric Coated Tablet PO SCH (09:50)
[2017-08-10] MEDS: FLUoxetine HCl 20 MG CAP PO SCH (09:50)
[2017-08-10] MEDS: Gabapentin 400 MG CAP PO SCH (09:50)
[2017-08-10] MEDS: Bupropion 150 MG XL TAB PO SCH (09:52)
[2017-08-10] MEDS: Enoxaparin Sodium 40 MG/0.4 ML SYRINGE SC SCH (09:53)
[2017-08-10] MEDS: HYDROcodone/Acetaminophen 5/325 mg Tablet PO PRN (10:20)
[2017-08-10] MEDS: cycloSPORINE 0.05% Ophthalmic Droperette EA EYE SCH (10:21)
[2017-08-10 11:21] LABS: Vancomycin, Trough 22.5 ug/mL
[2017-08-10 18:03] VITALS: BP 110/65; TEMP 98.4
--- NOTE | 2017-08-11 17:11 | DIS-2 ---
DATE OF ADMISSION: 08/09/2017 DATE OF DISCHARGE: 08/10/2017 RESIDENT: Celso Toure D.O. ADMITTING ATTENDING: Catracho Tovar M.D. DISCHARGE ATTENDING: Marianne Mills M.D. ENTERPRISE INTEGRATION DEVELOPER: Koffi Parra M.D., of Infectious Disease. PROCEDURES PERFORMED: Leg aspirate showing few WBCs and mostly blood. No organisms seen. Chest x-r ay showing no evidence of acute cardiopulmonary process. Right lower extremity ultrasound showing no evidence of right lower extremity DVT; multiple circumscribed hypoechoic masses/complex fluid collec tions involving the right foreleg. PRIMARY DIAGNOSIS: Right leg hematomas. SECONDARY DIAGNOSES: 1. Paraplegia secondary to T12 burst fracture. 2. Hypertension. 3. Sjogren syndrome. 4. Chronic kidney disease stage 2. DISCHARGE MEDICATIONS: 1. Bupropion 300 mg p.o. q.a.m. 2. Seroquel 50 mg p.o. at bedtime. 3. Aspirin 81 mg p.o. daily. 4. Gabapentin 400 mg p.o. b.i.d. 5. Kent 5/325 one tab q.8 hours p.r.n. pain. 6. Restasis 1 drop in each eye twice daily. 7. Tramadol 50 mg p.o. b.i.d. DISCONTINUED MEDICATIONS: None. HISTORY OF PRESENT ILLNESS AND HOSPITAL COURSE: The patient is a 67-year-old female who presented to the hospital after recommendation from her primary care doctor with concerns that patient had cellul itis. The patient does have a 1 year history of paraplegia secondary to falling off a horse. In thi s time, she has had multiple wounds on her legs that required intensive care by wound care here at [facility] in the outpatient setting. There was a concern that the patient had developed a ce llulitis as she began having warmth in erythema over the anterior right leg and denied any history of trauma; therefore, she went to her primary care doctor in [place], Dr. Rachel Gutierrez who prescribed her Levaquin and clindamycin, which see completed; however, she experienced no improvement in leg swellin g; therefore, she was told to come, be evaluated at this hospital. Dr. Parra who has experience with the patient came to evaluate and today need to aspirate of the fluid accumulation/mass. This reveal ed to be primarily blood. Dr. Parra had a low suspicion of any infection with the patient's afebrile state as well as white blood cell count of 5.5. All other vitals and labs were unremarkable. Evalu ation of fluid revealed to be mostly blood with no signs of infections; therefore, the patient was di scharged home with precautions and recommendation to follow up with PCP in 7 days. DISPOSITION: Stable. DISCHARGE INSTRUCTIONS: 1. Location: Home. 2. Diet: Heart healthy. 3. Activity: As tolerated. 4. Followup: With Dr. Rachel Gutierrez in the next 7-14 days.
== END 2017-08-10 16:47 | disposition home or self-care (01) ==
LOC: ERS 16:51 → T4-B 08-09 00:10
PROVIDERS: ADMIT Family Medicine; ATTEND Family Medicine
DX: S80.11XA Contusion of right lower leg, initial encounter (principal); G82.20 Paraplegia, unspecified; M35.00 Sjogren syndrome, unspecified; I12.9 Hypertensive chronic kidney disease with stage 1 through stage 4 chronic kidney disease, or unspecified chronic kidney disease; N18.2 Chronic kidney disease, stage 2 (mild); F32.9 Major depressive disorder, single episode, unspecified; L97.909 Non-pressure chronic ulcer of unspecified part of unspecified lower leg with unspecified severity; I89.0 Lymphedema, not elsewhere classified; L03.115 Cellulitis of right lower limb; Z79.82 Long term (current) use of aspirin; Z79.891 Long term (current) use of opiate analgesic; Z79.899 Other long term (current) drug therapy; Z88.0 Allergy status to penicillin; Z88.2 Allergy status to sulfonamides; Z88.5 Allergy status to narcotic agent; Z88.8 Allergy status to other drugs, medicaments and biological substances; Z98.890 Other specified postprocedural states; Z87.891 Personal history of nicotine dependence; M79.604 Pain in right leg
CPT/HCPCS: 71045; 80048 ×2; 80053; 80202; 83605; 83690; 85025 ×3; 85610; 85652; 85730; 87040; 87070; 87205; 89051; 93971; 96365; 96366 ×2; 96372 ×2; 96376; 97139; 99285; G0378; 36415; 85060; 96374; J1650; J3370; Q0162

== ENCOUNTER 2017-10-04 12:37 | Emergency (ER) | payer MEDICARE ==
[2017-10-04] MEDS ORDERED: Morphine 4 MG/ML VIAL ONE ×2 (13:02→15:52)
[2017-10-04] MEDS ORDERED: Acetaminophen 500 MG TAB ONE (13:02)
[2017-10-04] MEDS ORDERED: Ondansetron HCl/PF 4 MG/2 ML Vial ONE (13:02)
[2017-10-04 13:24] LABS: #Lymphocytes 0.8 thou/uL (1.20-3.40); #Neutrophils 12.7 thou/uL (1.40-6.50); %Basophils 0.3 % (0.0-1.0); %Eosinophils 0.1 % (0.0-10.0); %Lymphocytes 5.2 % (21.0-51.0); %Monocytes 6.9 % (0.0-10.0); %Neutrophils 87.6 % (42.0-75.0); Mean Corpuscular HGB CONC 33.4 g/dL (32.0-36.0); Mean Corpuscular Volume 95.8 fl (81.0-99.0); Mean Platelet Volume 7.6 fL (7.4-10.4); Platelet Count 256 thou/uL (130-400); RBC Distribution Width 12.8 % (11.5-14.5); White Blood Cell (WBC) Count 14.4 thou/uL (4.8-10.8)
[2017-10-04 13:42] LABS: ALT (SGPT) 25 U/L (8-55); AST (SGOT) 21 U/L (5-34); Albumin 3.9 g/dL (3.4-4.8); Alkaline Phosphatase 114 U/L (40-150); Anion Gap 16 mmol/L (10-20); BUN (Urea Nitrogen) 19 mg/dL (9.8-20.1); Bilirubin, Total 0.6 mg/dL (0.2-1.2); Calc. Creatinine Clearance 0 mL/min (70-130); Carbon Dioxide 20 mmol/L (23-31); Chloride 105 mmol/L (98-107); Estimated GFR-MDRD 57; Globulin 3.3 g/dL (2.4-3.5); Glucose 160 mg/dL (80-115); Protein, Total 7.2 g/dL (6.0-8.3); Sodium 137 mmol/L (136-145)
[2017-10-04 13:42] LABS: Bilirubin Small (Negative); Blood, Urine Moderate (Negative); Glucose, Urine (Dipstick) Negative (Negative); Leukocyte Large (Negative); Nitrite Negative (Negative); Protein, Urine (Dipstick) 100 mg/dL (Neg-Trace)
[2017-10-04 13:45] LABS: Clarity Opaque (Clear)
[2017-10-04 13:47] LABS: CKMB 1.4 ng/mL (0-6.6); Troponin I Less than 0.010 ng/mL (< 0.028)
--- NOTE | 2017-10-04 13:47 | CT ---
CT BRAIN WITHOUT CONTRAST: Date: 10/04/17 HISTORY: Syncope. Seizure. Unresponsive. COMPARISON: CT brain dated 08/15/16. FINDINGS: No acute territorial infarct or hemorrhage. No midline shift or mass effect. Mild deep white matter m icrovascular ischemic changes, similar. 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 No significant vasogenic edema. Paranasal sinuses and mastoids are clear. IMPRESSION: Chronic changes. No acute intracranial abnormality. POS: C
[2017-10-04 13:57] LABS: Bacteria/HPF 4+ HPF (None Seen); Hyaline Casts/LPF NONE SEEN LPF (0-3 Hyaline)
[2017-10-04 13:58] LABS: Transitional Epithelial 0-3 HPF (0-3)
== END 2017-10-04 16:10 | disposition home or self-care (01) ==
LOC: ERS 12:37
DX: N39.0 Urinary tract infection, site not specified (principal); I10 Essential (primary) hypertension
CPT/HCPCS: 36415; 70450; 80053; 81003; 81015; 82553; 83605; 84484; 85025; 87040; 87077; 87086; 87186; A4353; J1956; J2270; J2405

== ENCOUNTER 2017-10-05 05:25 | Inpatient (IN) | payer MEDICARE ==
[2017-10-05] MEDS ORDERED: Acetaminophen 500 MG TAB ONE (06:25)
[2017-10-05] MEDS ORDERED: Fentanyl 100 MCG/2 ML VIAL ONE (06:25)
[2017-10-05] MEDS ORDERED: Vancomycin HCl 1.25 GM in Sodium Chloride 0.9% 250 ML 250 ML IVPB SCH (06:30)
[2017-10-05 06:34] LABS: #Lymphocytes 0.6 thou/uL (1.20-3.40); #Monocytes 1.2 thou/uL (0.11-0.59); #Neutrophils 11.7 thou/uL (1.40-6.50); %Basophils 0.2 % (0.0-1.0); %Eosinophils 0.2 % (0.0-10.0); %Lymphocytes 4.4 % (21.0-51.0); %Monocytes 9.1 % (0.0-10.0); %Neutrophils 86.1 % (42.0-75.0); Hemoglobin 12.8 g/dL (12.0-16.0); Mean Corpuscular HGB CONC 34.2 g/dL (32.0-36.0); Mean Corpuscular Hemoglobin 32.7 pg (27.0-31.0); Mean Corpuscular Volume 95.6 fl (81.0-99.0); Mean Platelet Volume 7.8 fL (7.4-10.4); Platelet Count 175 thou/uL (130-400); RBC Distribution Width 12.6 % (11.5-14.5); White Blood Cell (WBC) Count 13.5 thou/uL (4.8-10.8)
[2017-10-05 06:41] LABS: ALT (SGPT) 30 U/L (8-55); AST (SGOT) 31 U/L (5-34); Albumin 3.5 g/dL (3.4-4.8); Alkaline Phosphatase 92 U/L (40-150); Anion Gap 15 mmol/L (10-20); BUN (Urea Nitrogen) 19 mg/dL (9.8-20.1); Bilirubin, Total 0.4 mg/dL (0.2-1.2); Calc. Creatinine Clearance 0 mL/min (70-130); Calcium 8.9 mg/dL (7.8-10.44); Carbon Dioxide 19 mmol/L (23-31); Chloride 104 mmol/L (98-107); Estimated GFR-MDRD 57; Globulin 2.7 g/dL (2.4-3.5); Glucose 130 mg/dL (80-115); Potassium 3.7 mmol/L (3.5-5.1); Protein, Total 6.2 g/dL (6.0-8.3); Sodium 134 mmol/L (136-145)
[2017-10-05 06:58] LABS: CKMB 2.1 ng/mL (0-6.6); Troponin I Less than 0.010 ng/mL (< 0.028)
--- NOTE | 2017-10-05 07:54 | RAD ---
AP VIEW CHEST: 10/05/2017 HISTORY: Headache. Fever. Urinary tract infections. COMPARISON: 08/08/2017 TECHNIQUE: An AP portable view of the chest is obtained. FINDINGS: AP view chest demonstrates calcification of the aorta. The lungs are well aerated. No evidence of a ctive intrathoracic disease is seen. No evidence of effusions, pneumonia, or pneumothorax is seen. IMPRESSION: Unremarkable AP view chest. POS: [facility]
[2017-10-05 08:26] LABS: Bilirubin Negative (Negative); Blood, Urine Moderate (Negative); Clarity CLOUDY (Clear); Glucose, Urine (Dipstick) Negative (Negative); Leukocyte Large (Negative); Nitrite Positive (Negative); Protein, Urine (Dipstick) 30 mg/dL (Neg-Trace); Specific Gravity, Urine 1.037 (1.002-1.036)
[2017-10-05 08:27] LABS: Pathc Cast-AUWi Flag 2.47 (0-2.49); Squamous Epithelial 0-3 HPF (0-3)
[2017-10-05] MEDS ORDERED: Ondansetron ODT 4 MG TAB PO PRN (08:41)
--- NOTE | 2017-10-05 08:43 | PDOC.FPRHP ---
- History of Present Illness Chief Complaint: L flank pain History of Present Illness: This 67 yo F presents with L flank pain which has been going on for 5 days. 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 She came to the ER for evaluation yesterday and was sent home on levoquin which she is not sure if she took or not. Patient is A&Ox3 but difficult historian. She denies burning or blood with urination, she states she has no feeling from the waist down but is not incontinent. The pain is stabbing 6/10 pain mostly in the L flank which has no exacerbating or alleviating factors. She does not cath at home, she controls her own urination. She has had nausea and vomiting for 2 days. She has fevers and sweats. She has also had a throbbing headache for 2d, CT head in the ED yesterday showed no acute process. ED Course: Vanc, CT abd, cultures - Allergies/Adverse Reactions Allergies Allergy/AdvReac Type Severity Reaction Status Date / Time amoxicillin Allergy Verified 08/09/17 01:44 codeine Allergy Verified 08/09/17 01:44 Sulfa (Sulfonamide Allergy Verified 08/09/17 01:44 Antibiotics) zolpidem [From Ambien] Allergy Verified 08/09/17 01:44 - Home Medications Medication Instructions Recorded Confirmed Type Aspirin [Ecotrin] 81 mg PO DAILY 12/06/16 10/05/17 History Gabapentin [Neurontin] 400 mg PO BID 12/06/16 10/05/17 History QUEtiapine Fumarate [SEROquel] 50 mg PO HS 12/06/16 10/05/17 History buPROPion HCl [Wellbutrin XL] 300 mg PO QAM 12/06/16 10/05/17 History HYDROcodone/Acetaminophen 1 tab PO Q8HR PRN 08/09/17 10/05/17 History [Hydrocodone-Acetamin 5-325 mg] Restasis [Restasis Ophth Drops] 1 drop EA EYE BID 08/09/17 10/05/17 History traMADol HCl [Tramadol HCl] 50 mg PO Q6HR 08/09/17 10/05/17 History - History PMHx: Sjogren, Paraplegia 2/2 horse riding accident, HTN, depression PSHx: ureteral implant on L 2/2 congenital defecit in 20s? FHx: father leukemia, mother pancreatic cancer Social: 50 pack year smoker, quit 3 years ago, no alcohol, no drugs - Review of Systems General: reports: fever/chills, night sweats. denies: weight/appetite/sleep changes, fatigue Eyes: denies: vision changes ENT: denies: nasal congestion, rhinorrhea Respiratory: denies: cough, congestion, shortness of breath Cardiovascular: denies: chest pain, palpitation, edema Gastrointestinal: reports: nausea, vomiting, constipation. denies: diarrhea, abdominal pain, GI bleeding Genitourinary: denies: incontinence, dysuria, polyuria Skin: denies: rashes, lesions Musculoskeletal: reports: other (occassional phantom pains). denies: arthritis/ arthralgias Neurological: reports: other (hx of t12 injury w/ resultant paraplegia, no new focal deficits, headache for 2 days) Psychological: reports: depression. denies: anxiety - Vital signs BP: [138/78] HR: [90] RR: [19] Tmax: [99.7] Pox: [97]% on [2L] Wt: [68.4kg] - Physical Exam Constitutional: NAD, awake, alert and oriented, other (sweats) HEENT: PERRLA, EOMI, MMM Neck: supple, FROM Heart: RRR, normal S1/S2, no murmurs/rubs/gallops Lungs: CTAB, no respiratory distress, good air movement Abdomen: soft -Abdomen: bowel sounds present, mild distension, no rebound tenderness, no pain to palpation Musculoskeletal: other (upper extremity strength and ROM WNL) Neurological: CN II-XII intact, other (no new focal deficit, cannot move lower extremities) Skin: no rash/lesions, capillary refill <2 seconds Heme/Lymphatic: no unusual bruising or bleeding Psychiatric: normal mood and affect FMR H&P: Results - Labs Result Diagrams: 10/05/17 06:08 10/05/17 06:08 Lab results: WBC 13.5 thou/uL (4.8-10.8) H 10/05/17 06:08 Hgb 12.8 g/dL (12.0-16.0) 10/05/17 06:08 Hct 37.3 % (36.0-47.0) 10/05/17 06:08 MCV 95.6 fl (81.0-99.0) 10/05/17 06:08 Plt Count 175 thou/uL (130-400) 10/05/17 06:08 Neutrophils % 86.1 % (42.0-75.0) H 10/05/17 06:08 Sodium 134 mmol/L (136-145) L 10/05/17 06:08 Potassium 3.7 mmol/L (3.5-5.1) 10/05/17 06:08 Chloride 104 mmol/L (98-107) 10/05/17 06:08 Carbon Dioxide 19 mmol/L (23-31) L 10/05/17 06:08 BUN 19 mg/dL (9.8-20.1) 10/05/17 06:08 Creatinine 0.97 mg/dL (0.6-1.1) 10/05/17 06:08 Glucose 130 mg/dL (80-115) H 10/05/17 06:08 Lactic Acid 1.0 mmol/L (0.5-2.2) 10/05/17 06:08 Calcium 8.9 mg/dL (7.8-10.44) 10/05/17 06:08 Total Bilirubin 0.4 mg/dL (0.2-1.2) 10/05/17 06:08 AST 31 U/L (5-34) 10/05/17 06:08 ALT 30 U/L (8-55) 10/05/17 06:08 Alkaline Phosphatase 92 U/L (40-150) 10/05/17 06:08 CK-MB (CK-2) 2.1 ng/mL (0-6.6) 10/05/17 06:34 B-Natriuretic Peptide 76.1 pg/mL (0-100) 10/05/17 06:34 Serum Total Protein 6.2 g/dL (6.0-8.3) 10/05/17 06:08 Albumin 3.5 g/dL (3.4-4.8) 10/05/17 06:08 FMR H&P: A/P - Problem List (1) Pyelonephritis Current Visit: Yes Status: Acute Code(s): N12 - TUBULO-INTERSTITIAL NEPHRITIS, NOT SPCF ACUTE OR CHRONIC (2) UTI (urinary tract infection) Current Visit: No Status: Acute (3) Anxiety and depression Current Visit: No Status: Chronic Code(s): F41.9 - ANXIETY DISORDER, UNSPECIFIED; F32.9 - MAJOR DEPRESSIVE DISORDER, SINGLE EPISODE, UNSPECIFIED (4) Hypertension Current Visit: No Status: Chronic Code(s): I10 - ESSENTIAL (PRIMARY) HYPERTENSION (5) Paraplegia Current Visit: No Status: Chronic Code(s): G82.20 - PARAPLEGIA, UNSPECIFIED (6) Sjogrens syndrome Current Visit: No Status: Chronic Code(s): M35.00 - SICCA SYNDROME, UNSPECIFIED - Plan # Pyelonephritis, not septic currently watch closely - Vanc/Cefepime - paraplegia, sweats, amox allergy - L flank pain, afebrile in ED - lactic 1.0, WBC 13/5 - Ucx, Blood cx - NS 125 ml/hr # Sjogren's syndrome - eye drops - home meds # HTN - home meds # Constipation - No BM 3-4 days - CT abd/pelvis in Ed - Senna/miralax # Code -full # PPx - lovenox FMR H&P: Upper Level - Pertinent history Pt is a 67yo CF with PMHx of paraplegia 2/2 T12 burst fx, Sjogren's and HTN who presents with worsening LT flank pain. Patient was seen yesterday at [facility] ED and diagnosed with UTI and sent home on Levaquin. Associated with N/V, diaphoresis and subjective fevers. Denies dysuria or inc urinary frequency. In the ED, given levaquin and vanc. - Pertinent findings T 100 RR 27 HR 97 BP 138/72 O2 96% on RA Wt 68kg Gen: diaphoretic, in acute distress HEENT: PERRLA Heart: S1 S2, RRR Abd: +suprapubic tenderness, +LT CVA tenderness Ext: no cyanosis or edema WBC: 13.5 Lactate: 1.0 - Plan Date/Time: 10/05/17 0838 1. LT Pyelonephritis: S/p 1L bolus in the ED as well as Vanc and Levaquin. Give additional bolus and cont IVF. Will start Cefepime and cont Vanc. CT Abd/pelv report pending but per radiologist, showed LT pyelo and cholelithiasis only. Urine cx obtained yesterday during ED visit. Final results pending. Obtained urine and bl cx's today as well. 2. Leukocytosis: 2/2 #1. 3. Sjogren's: cont home eye drops. 4. Depression: cont home wellbutrin and seroquel. 5. Diet: HH 6. PPx: lovenox 7. Code status: Full I, Zuleyka Shane, have evaluated this patient and agree with findings/ plan as outlined by engineer intern resident. Pertinent changes/additions are listed here.
[2017-10-05] MEDS ORDERED: Ondansetron HCl/PF 4 MG/2 ML Vial ONE (08:49)
[2017-10-05] MEDS ORDERED: Cefepime 1 GM in Sodium Chloride 0.9% 100 ML IVPB SCH (09:00)
[2017-10-05] MEDS ORDERED: Vancomycin HCl 1 GM in Sodium Chloride 0.9% 250 ML 250 ML IVPB SCH (09:00)
[2017-10-05 09:04] LABS: Hyaline Casts/LPF NONE SEEN LPF (0-3 Hyaline)
[2017-10-05 09:07] LABS: Bacteria/HPF 3+ HPF (None Seen)
[2017-10-05] MEDS ORDERED: ISOVUE-370 76%-LOCM 1 ML ONE (10:03)
[2017-10-05] MEDS ORDERED: Sodium Chloride 0.9% 1,000 ML IV SCH (10:45)
[2017-10-05] MEDS: Polyethylene Glycol 3350 17 GM Packet PO SCH (10:46)
[2017-10-05] MEDS: Senokot 8.6 MG TAB PO SCH (10:46)
[2017-10-05] MEDS: Enoxaparin Sodium 40 MG/0.4 ML SYRINGE SC SCH (10:47)
[2017-10-05] MEDS: Cefepime 1 GM, Admixture Fee 1 EACH in Sodium Chloride 0.9% 10 ML SLOW IVP SCH ×2 (10:48→21:20)
[2017-10-05] MEDS: Sodium Chloride 0.9% 1,000 ML IV SCH ×2 (10:50→17:45)
[2017-10-05] MEDS: HYDROcodone/Acetaminophen 7.5/325 mg Tablet PO PRN ×2 (10:57→16:50)
[2017-10-05 11:29] LABS: Troponin I 0.026 ng/mL (< 0.028)
--- NOTE | 2017-10-05 12:06 | HP ---
I have reviewed the history and physical of Dr. Celso Darnell and agree with his assessment and plan. BRIEF HISTORY: Ms. Marte is a 67-year-old white female who is paraplegic from traumatic T12 injury 1 year ago after falling off of a horse. She presented with CVA tenderness, fever, and dysuria. He r symptoms and labs are consistent with acute pyelonephritis. She has been placed on broad spectrum antibiotics pending culture results. PHYSICAL EXAMINATION: VITAL SIGNS: She is currently afebrile. Her pulse rate is 85. Her respirations are 18, her blood p ressure is 125/74. GENERAL: She is awake, alert, although complaining of some abdominal discomfort and flank pain, as w ell as a headache. EAR: No erythema or exudate. NECK: Supple. CARDIAC: Heart rhythm regular, no gallop or murmur. LUNGS: Clear, without rales or wheezes. She is in no respiratory distress. ABDOMEN: Slightly distended, tender. No guarding, rebound or rigidity noted. NEUROLOGIC: No focal deficits. LABORATORY DATA: White count is 13,500, hemoglobin 12.8, hematocrit 37.3 with an MCV of 95.6. Chemi stries: Sodium 134, potassium 3.7, chloride 104, bicarbonate 19, BUN 19, creatinine 0.97 with a gluc ose of 130. Her liver enzymes are normal. Her troponin levels are less than 0.01. Urinalysis; mode rate blood, positive nitrites, large leukocyte esterase, TNTC WBCs. Chest x-ray demonstrates calcification of aorta, the lungs are well aerated. There is no evidence of an active intrathoracic disease process. No pneumonia, effusion or pneumothorax is noted. An abdom inal and pelvic CT report is pending, but initial reports reveal no evidence of acute abdominal patho logy. ASSESSMENT: Acute pyelonephritis in a patient with T12 paraplegia. PLAN: Begin and continue broad spectrum antibiotics, fluids. Awaiting results of culture.
--- NOTE | 2017-10-05 13:47 | CT ---
PRELIMINARY REPORT/[facility]/EMERGENTY AFTER-HOURS PROCEDURE CT Abdomen and Pelvis Without and With Intravenous Contrast CLINICAL HISTORY: 67 years old, female; Pain; Abdominal pain; Generalized; Patient HX: Chogren's. Crushed t12, pressure ulcers x 5 in past year, paralyzed from waist down. ; Additional info: Additional history obtained f rom ems, 67 yo wf HX t12 injury leading to parapalegia. Was seen in er yesterday morning and dx with uti. D/c with levaquin but unsure if she took her meds. Confused at time of exam. Ems was called for hip pain. Found to be febrile. Concerning for sepsis. TECHNIQUE: Axial computed tomography images of the abdomen and pelvis without and with intravenous contrast. Cor onal reformatted images were created and reviewed. CONTRAST: 70 mL of ISOVUE administered intravenously. COMPARISON: No relevant prior studies available. FINDINGS: Lower thorax: No acute findings. ABDOMEN: Liver: Simple cyst in the left lobe. Hepatomegaly and diffuse fatty infiltration No mass. Gallbladder and bile ducts: Questionable fold in the gallbladder fundus versus faint abnormal enhance ment. Gallstone in the neck of the gallbladder noted No ductal dilation. Pancreas: Unremarkable. No mass. No ductal dilation. Spleen: Unremarkable. No splenomegaly. Adrenals: Right adrenal mass measuring 3 cm is indeterminate Kidneys and ureters: Vague stranding surrounding the left kidney with mild prominence to the collecti ng system and proximal left ureter. 3 mm calculus in the upper pole. Heterogeneous enhancement and st riated and some the postcontrast images Stomach and bowel: Mild colonic diverticulosis No obstruction. No mucosal thickening. Appendix: No findings to suggest acute appendicitis. PELVIS: Bladder: Ectopic insertion of the left ureter noted. Question mild bladder trabeculations Reproductive: Unremarkable as visualized. ABDOMEN and PELVIS: Intraperitoneal space: Unremarkable. No free air. No significant fluid collection. Bones/joints: No acute fracture. No dislocation. Degenerative changes and dextroscoliosis in the lumb ar spine Soft tissues: Presumed decubitus ulcers over the lower sacrum and coccyx Vasculature: Unremarkable. No abdominal aortic aneurysm. Lymph nodes: Unremarkable. No enlarged lymph nodes. IMPRESSION: Suspected left-sided pyelonephritis. Recently passed calculus cannot be completely excluded. Left renal calculus measuring 3 mm Large gallstone in the gallbladder neck. Indeterminate right adrenal mass. Comparison with prior images would be helpful. Otherwise followupno n-urgent evaluation recommended Decubitus ulcers over the lower sacrum and coccyx Thank you for allowing us to participate in the care of your patient. Dictated and Authenticated by: Phuc Bates MD 10/05/2017 7:06 AM Central Time ([place] & [place]) FINAL REPORT EMERGENCY AFTER HOURS CT ABDOMEN AND PELVIS WITH AND WITHOUT IV CONTRAST: Date: 10/05/17 HISTORY: Generalized abdominal pain. Patient diagnosed with UTI 1 day ago, per patient. Patient now confused a nd febrile. IMPRESSION: 1. Left pyelonephritis with heterogeneous enhancement of the left kidney; there is mild thickening o f the chand of the left ureter. There is ectopic insertion of the left ureter, with the left ureter i nserting on the left anterolateral aspect of the urinary bladder. Urinary bladder is distended. 2. Scarring lateral aspect mid portion left kidney, also present on study of 12/06/16. The previousl y noted calculus in this region is no longer visualized; although there is a stable, nonobstructing c alculus in the superior pole left kidney measuring approximately 3.0 mm. 3. No right renal or ureteral calculus is present. Right kidney enhances normally. 4. Stable low density lesion lateral segment left hepatic lobe, unchanged from study on 12/06/16 and likely represents a hepatic cyst. There is fatty infiltration of the liver. 5. Right adrenal mass which cannot be characterized as an adrenal adenoma based on this exam. This m ass measures approximately 3.2 cm and was also present on the study of 12/06/16. This mass was also p resent on the study of 08/15/16 and measured 2.9 cm. Further evaluation with either follow-up CT scan examination with washout or MRI examination for further characterization. 6. Small hiatal hernia. 7. Bibasilar atelectasis. 8. Burst fracture T12 vertebral body seen on prior study. Multilevel degenerative changes are seen i n the spine and there is left convex scoliosis thoracolumbar spine. 9. Colonic diverticulosis. 10. Cholelithiasis with large gallbladder calculus. 11. Soft tissue thickening overlying the region of the sacrum. Decubitus ulceration or prior inflamm atory changes is a possibility. Clinical correlation is recommended. 12. Mild cardiomegaly. Findings are in agreement with the preliminary report by Emilie. POS: ELIDA
--- NOTE | 2017-10-05 13:47 | RAD ---
4 VIEWS CERVICAL SPINE: Date: 10/05/17 HISTORY: Neck pain. COMPARISON: None available. FINDINGS: C1 cervicothoracic junction is seen on the lateral and swimmer's views of the cervical spine. However , the C7 and T1 vertebral bodies are mostly obscured due to overlying structures. There are degenerat shilpi changes seen in the lower cervical spine. There is slight retrolisthesis of C5 on C6, and to a le sser degree C6 on C7, with narrowing of the intervertebral disc spaces at this level, as well as oste ophyte formation present. No obvious fracture is appreciated on the provided images. The odontoid is partially obscured on the odontoid view, but is normal in appearance on the lateral projection. Preve rtebral soft tissues are within normal limits. IMPRESSION: 1. No obvious acute fracture is visualized. 2. Slight retrolisthesis of C5 on C6 and C6 on C7. 3. Degenerative changes, predominantly in the lower cervical spine. 4. If patient has neurological deficit or history of significant injury, CT scan versus MRI cervical spine may be helpful for further evaluation. POS: ABDIRASHID
[2017-10-05] MEDS: Phenazopyridine HCl 97.5 MG TABLET PO SCH (17:48)
[2017-10-05] MEDS: Gabapentin 400 MG CAP PO SCH (21:18)
[2017-10-05] MEDS: traMADol HCl 50 MG TAB PO PRN (21:18)
[2017-10-05] MEDS: Vancomycin HCl 1 GM in Premix Bag 1 BAG IVPB SCH (21:19)
[2017-10-05] MEDS: cycloSPORINE 0.05% Ophthalmic Droperette EA EYE SCH (21:20)
--- NOTE | 2017-10-05 23:13 | ULT ---
ULTRASOUND ABDOMEN LIMITED: (RIGHT UPPER QUADRANT) 10/05/17 HISTORY: 67-year-old female with mid epigastric pain. FINDINGS: Gallbladder: Normal wall thickness of 2 mm. No sonographic Prajapati's sign. An approximately 30 mm gall stone in the proximal body, near the neck. No pericholecystic edema. Common duct: 5 mm. Liver: Diffusely increased echogenicity representing fatty liver. Approximately 1 cm cyst in left lob e of the liver. The greenhouse specialist has measured an approximately 2.5 x 2.5 x 2 cm hypoechoic lesion with internal echoes, in the right lobe of the liver, and has labeled it as a complex cyst. However, ther e is no solid or cystic lesion identified in the right lobe of the liver on the CT of the abdomen obt ained earlier today. Therefore, it is uncertain whether this is a portion of the intrahepatic inferio r vena cava or a portion of the gallbladder. Pancreas: Nonspecific sonographic appearance. Right kidney: No hydronephrosis. The large right adrenal mass demonstrated on the CT is difficult to visualize on this ultrasound. IMPRESSION: 1. Cholelithiasis without sonographic evidence of acute cholecystitis. 2. Hepatic steatosis. DESIRE Link POS: ABDIRASHID
[2017-10-06] MEDS: Sodium Chloride 0.9% 1,000 ML IV SCH ×4 (01:43→23:19)
[2017-10-06] MEDS: traMADol HCl 50 MG TAB PO PRN (03:07)
[2017-10-06] MEDS: HYDROcodone/Acetaminophen 7.5/325 mg Tablet PO PRN ×2 (04:09→12:37)
[2017-10-06 04:31] LABS: #Lymphocytes 0.6 thou/uL (1.20-3.40); #Monocytes 1.3 thou/uL (0.11-0.59); #Neutrophils 9.7 thou/uL (1.40-6.50); %Basophils 0.1 % (0.0-1.0); %Eosinophils 0.1 % (0.0-10.0); %Monocytes 10.9 % (0.0-10.0); %Neutrophils 83.8 % (42.0-75.0); Hemoglobin 12.1 g/dL (12.0-16.0); Mean Corpuscular HGB CONC 33.7 g/dL (32.0-36.0); Mean Corpuscular Hemoglobin 33.2 pg (27.0-31.0); Mean Corpuscular Volume 98.7 fl (81.0-99.0); Mean Platelet Volume 8.2 fL (7.4-10.4); Platelet Count 154 thou/uL (130-400); RBC Distribution Width 12.6 % (11.5-14.5); Red Blood Cell (RBC) Count 3.66 mill/uL (4.20-5.40); White Blood Cell (WBC) Count 11.6 thou/uL (4.8-10.8)
[2017-10-06 04:39] LABS: Anion Gap 11 mmol/L (10-20); BUN (Urea Nitrogen) 12 mg/dL (9.8-20.1); Calc. Creatinine Clearance 0 mL/min (70-130); Calcium 8.7 mg/dL (7.8-10.44); Carbon Dioxide 18 mmol/L (23-31); Chloride 108 mmol/L (98-107); Estimated GFR-MDRD 84; Glucose 92 mg/dL (80-115); Potassium 3.3 mmol/L (3.5-5.1); Sodium 134 mmol/L (136-145)
[2017-10-06 07:54] LABS: Troponin I 0.029 ng/mL (< 0.028)
[2017-10-06] MEDS ORDERED: Potassium Chloride 20 MEQ TAB PO SCH (08:15)
--- NOTE | 2017-10-06 08:52 | PDOC.FM ---
- Subjective Subjective: This morning patient states she is feeling much better than yesterday although not completely well as of yet. She is still having occassional headaches but her neck pain is improved. Now a mild ache. She denies any abdominal pain. She has a decreased appetite but is eating more than yesterday, denies N/V/D. - Objective Vital Signs & Weight: Vital Signs (12 hours) Temp Pulse Resp BP Pulse Ox 10/06/17 04:00 98.7 F 82 18 169/76 H 94 L 10/06/17 00:00 99.2 F 84 18 148/75 H 96 I&O: 10/05/17 10/06/17 10/07/17 06:59 06:59 06:59 Intake Total 1980 Output Total 2697 Balance -717 Result Diagrams: 10/06/17 03:57 10/06/17 03:57 Phys Exam - Physical Examination Constitutional: NAD HEENT: PERRLA, moist MMs Neck: no nodes, supple Respiratory: no wheezing, clear to auscultation bilateral Cardiovascular: RRR, no significant murmur Gastrointestinal: soft, non-tender, no distention, positive bowel sounds Musculoskeletal: no edema, pulses present no new neurologic defects Psychiatric: normal affect, A&O x 3 Skin: no rash, cap refill <2 seconds Dx/Plan (1) Pyelonephritis Code(s): N12 - TUBULO-INTERSTITIAL NEPHRITIS, NOT SPCF ACUTE OR CHRONIC Status: Acute (2) UTI (urinary tract infection) Status: Acute (3) Anxiety and depression Code(s): F41.9 - ANXIETY DISORDER, UNSPECIFIED; F32.9 - MAJOR DEPRESSIVE DISORDER, SINGLE EPISODE, UNSPECIFIED Status: Chronic (4) Hypertension Code(s): I10 - ESSENTIAL (PRIMARY) HYPERTENSION Status: Chronic (5) Paraplegia Code(s): G82.20 - PARAPLEGIA, UNSPECIFIED Status: Chronic (6) Sjogrens syndrome Code(s): M35.00 - SICCA SYNDROME, UNSPECIFIED Status: Chronic - Plan Plan: # Pyelonephritis, not septic currently watch closely - Vanc/Cefepime - Afebrile overnight - CVA tenderness resolved - WBC downtrending - Ucx, Blood cx pending - NS 75ml/hr # Elevated troponin - .01 -> .026 -> .29 - likely demand ischemia - denies chest pain - will monitor # Sjogren's syndrome - eye drops - home meds # HTN - home meds # Constipation - No BM 3-4 days - CT abd/pelvis in Ed - Senna/miralax # Depression - home meds # Code -full # PPx - lovenox
[2017-10-06] MEDS: Vancomycin HCl 1 GM in Premix Bag 1 BAG IVPB SCH (09:24)
[2017-10-06] MEDS: Cefepime 1 GM, Admixture Fee 1 EACH in Sodium Chloride 0.9% 10 ML SLOW IVP SCH (09:24)
[2017-10-06] MEDS: Polyethylene Glycol 3350 17 GM Packet PO SCH (09:25)
[2017-10-06] MEDS: Enoxaparin Sodium 40 MG/0.4 ML SYRINGE SC SCH (09:25)
[2017-10-06] MEDS: Senokot 8.6 MG TAB PO SCH (09:25)
[2017-10-06] MEDS: Gabapentin 400 MG CAP PO SCH ×2 (09:29→22:44)
[2017-10-06] MEDS: Aspirin 81 mg Enteric Coated Tablet PO SCH (09:29)
[2017-10-06] MEDS: Phenazopyridine HCl 97.5 MG TABLET PO SCH ×3 (09:32→17:57)
[2017-10-06] MEDS: cycloSPORINE 0.05% Ophthalmic Droperette EA EYE SCH ×2 (09:33→22:45)
[2017-10-06] MEDS ORDERED: Fluconazole 100 MG TAB PO ONE (10:40)
[2017-10-06] MEDS: Potassium Chloride 20 MEQ TAB PO SCH ×2 (12:37→17:57)
[2017-10-06 13:18] VITALS: BMI 25.7
--- NOTE | 2017-10-06 14:22 | PRG ---
DATE OF SERVICE: 10/06/2017 Ms. Marte looks confused and feels much better this morning. She is afebrile. She has no headache . She has no abdominal pain. She did grow a Klebsiella organism from her urine, sensitive to Levaqu in. We will switch her to p.o. Levaquin 750 mg daily, and anticipate at least a 2-week treatment. S he will likely be discharged in the morning.
--- NOTE | 2017-10-07 06:54 | PDOC.FM ---
- Subjective Subjective: This morning patient states she is feeling much better. She was able to eat supper without difficulty last night, no N/V/D. She denies abdominal pain, headache, or neck pain today. Antibiotic therapy has helped alleviate her symptoms. - Objective Vital Signs & Weight: Vital Signs (12 hours) Temp Pulse Resp BP Pulse Ox 10/07/17 04:18 98.8 F 64 20 166/73 H 91 L 10/07/17 00:00 98.8 F 68 16 148/73 H 91 L 10/06/17 20:00 99.1 F 76 16 153/83 H 96 Weight Admit Weight 68.039 kg Weight 68.039 kg I&O: 10/05/17 10/06/17 10/07/17 06:59 06:59 06:59 Intake Total 1979 1410 Output Total 2697 2275 Balance -717 -865 Result Diagrams: 10/06/17 03:57 10/06/17 03:57 <Celso Darnell - Last Filed: 10/07/17 06:53> - Objective Vital Signs & Weight: Vital Signs (12 hours) Temp Pulse Resp BP Pulse Ox 10/07/17 11:21 98.8 F 63 20 145/79 H 95 Weight Admit Weight 68.039 kg Weight 68.039 kg I&O: 10/06/17 10/07/17 10/08/17 06:59 06:59 06:59 Intake Total 1979 1410 Output Total 2697 2275 Balance -717 869 Result Diagrams: 10/06/17 03:57 10/06/17 03:57 <Marianne Mills - Last Filed: 10/07/17 21:53> Phys Exam - Physical Examination Constitutional: NAD HEENT: PERRLA, moist MMs Neck: no nodes, full ROM Respiratory: no wheezing, clear to auscultation bilateral Cardiovascular: RRR, no significant murmur Gastrointestinal: soft, non-tender, no distention, positive bowel sounds Musculoskeletal: no edema, pulses present chronic paraplegia below T12 continent Psychiatric: normal affect, A&O x 3 Skin: no rash, cap refill <2 seconds <Celso Darnell - Last Filed: 10/07/17 06:53> Dx/Plan (1) Pyelonephritis Code(s): N12 - TUBULO-INTERSTITIAL NEPHRITIS, NOT SPCF ACUTE OR CHRONIC Status: Acute (2) UTI (urinary tract infection) Status: Acute (3) Anxiety and depression Code(s): F41.9 - ANXIETY DISORDER, UNSPECIFIED; F32.9 - MAJOR DEPRESSIVE DISORDER, SINGLE EPISODE, UNSPECIFIED Status: Chronic (4) Hypertension Code(s): I10 - ESSENTIAL (PRIMARY) HYPERTENSION Status: Chronic (5) Paraplegia Code(s): G82.20 - PARAPLEGIA, UNSPECIFIED Status: Chronic (6) Sjogrens syndrome Code(s): M35.00 - SICCA SYNDROME, UNSPECIFIED Status: Chronic - Plan Plan: # Pyelonephritis, not septic currently watch closely - Vanc/Cefepime on admit - switched to levoquin after cultures resulted - Afebrile overnight - CVA tenderness resolved # Elevated troponin - .01 -> .026 -> .29 - likely demand ischemia - denies chest pain # Sjogren's syndrome - eye drops - home meds # HTN - home meds # Constipation - No BM 3-4 days - CT abd/pelvis in ED shows pyelonephritis - Senna/miralax # Depression - home meds # Code -full # PPx - lovenox Dispo: home today on 14d course of levoquin <Celso Darnell - Last Filed: 10/07/17 06:53> Attending Addendum - Attending Addendum Date/Time: 10/07/17 6830 I personally evaluated the patient and discussed the management with Dr. Darnell. I agree with the History, Examination, Assessment and Plan documented above with any addition or exceptions noted below. Patient doing well. Pain is resolved. She will be discharged on PO levaquin. <Marianne Mills - Last Filed: 10/07/17 21:53>
[2017-10-07] MEDS: Potassium Chloride 20 MEQ TAB PO SCH (08:42)
[2017-10-07] MEDS: Aspirin 81 mg Enteric Coated Tablet PO SCH (08:43)
[2017-10-07] MEDS: Phenazopyridine HCl 97.5 MG TABLET PO SCH (08:43)
[2017-10-07] MEDS: Enoxaparin Sodium 40 MG/0.4 ML SYRINGE SC SCH (08:43)
[2017-10-07] MEDS: Gabapentin 400 MG CAP PO SCH (08:43)
[2017-10-07] MEDS: cycloSPORINE 0.05% Ophthalmic Droperette EA EYE SCH (08:43)
[2017-10-07] MEDS: Senokot 8.6 MG TAB PO SCH (08:44)
[2017-10-07] MEDS: Polyethylene Glycol 3350 17 GM Packet PO SCH (08:44)
--- NOTE | 2017-10-07 11:23 | DIS-2 ---
DATE OF ADMISSION: 10/05/2017 DATE OF DISCHARGE: 10/07/2017 RESIDENT: Dr. Celso Darnell. ADMITTING ATTENDING: Dr. Lane Pacheco. DISCHARGE ATTENDING: Dr. Marianne Mills. CONSULTATIONS: None. PROCEDURES: None. PRIMARY DIAGNOSIS: Pyelonephritis. SECONDARY DIAGNOSES: Elevated troponin, Sjogren's syndrome, hypertension, constipation, depression. DISCHARGE MEDICATIONS: Levaquin 750 mg p.o. daily for 14 days, MiraLax, aspirin 81 mg, gabapentin, Lanse, tramadol, bupropion, Seroquel. DISCONTINUED MEDICATIONS: None. HOSPITAL COURSE: A 67-year-old female who presented with left flank pain which has been worsening for 5 days. She had paraplegia secondary to a horse injury in 07/2017 as well as a left ureteral implant from her 20s secondary to a congenital defect. The patient complains of 6/10 pain mostly in the left flank. No exacerbating or alleviating factors. She does not cath at home. She is not incontinent. She has had nausea and vomiting for 2 days. She has had fevers and sweats. The patient was started on broad spectrum antibiotics and was afebrile during the hospitalization. Her urine was cultured showed Klebsiella sensitive to levofloxacin. The patient's symptoms resolved after treatment with antibiotics. Patient is sent home on a 14-day course of Levaquin. Patient had a CT abdomen and pelvis in the ER which showed 3-mm renal calculi in the renal pelvis not dislodged. Also, could not rule out a renal calculi that had passed. DISPOSITION: Stable. DISCHARGE INSTRUCTIONS: 1. Location: Home. 2. Diet: Regular. 3. Activity: As tolerated. 4. Followup: Dr. Rachel Gutierrez at [facility]. [facility]
[2017-10-07 11:24] VITALS: BP 145/79; TEMP 98.8
--- NOTE | 2017-10-07 19:10 | EKG ---
Test Reason : Blood Pressure : / mmHG Vent. Rate : 087 BPM Atrial Rate : 087 BPM P-R Int : 162 ms QRS Dur : 078 ms QT Int : 360 ms P-R-T Axes : 038 -11 031 degrees QTc Int : 433 ms Normal sinus rhythm Normal ECG Confirmed by LATA PERSON, DR. Hardy ([id number]) on 10/07/2017 7:09:39 PM Referred By: Confirmed By:DR. Antony GUIDO MD
--- NOTE | 2017-10-10 13:45 | PQF ---
MISSAEL GASPAR RYAN [id number] [facility] [id number] CLINICAL DOCUMENTATION CLARIFICATION FORM: POST DISCHARGE Addendum to original discharge summary date: 10/12/17 Late entry note date: 10/12/17 DATE: 10/10/17 ATTN: DR JONES Please exercise your independent, professional judgment in responding to the clarification form. Clinical indicators are provided on the bottom of this form for your review Please check appropriate box(s): ER NURSE DOCUMENTS: STAGE III PRESSURE ULCER TO LEFT HEEL ___x___ I (concur) with ER NURSING findings as stated below. [ x ] Pressure Ulcer: (Stage I: Erythema; Stage II: Partial thickness; Stage III : Full thickness; Stage IV: Necrosis to muscle/bone) [ ] Location: Left Heel stage II POA: [ x ] Yes [ ] No [ ] Unable to determine Stage (I to IV): (Left Right Bilateral N/A ) [ ] Location: POA: [ ] Yes [ ] No [ ] Unable to determine Stage (I to IV): (Left Right Bilateral N/A ) [ ] Location: POA: [ ] Yes [ ] No [ ] Unable to determine Stage (I to IV): (Left Right Bilateral N/A ) [ ] Gangrene present [ ] Yes [ ] ischemic gangrene [ ] gas gangrene [ ] No [ ] No pressure ulcer diagnosis [ ] Deep tissue injury [ ] Other diagnosis [ ] Unable to determine In addition, please specify: Present on Admission (POA): [x ] Yes [ ] No [ ] Unable to determine For continuity of documentation, please document condition throughout progress notes and discharge summary. Thank You. CLINICAL INDICATORS - SIGNS / SYMPTOMS / LABS Pre-ulcer skin changes limited to persistent focal edema (Stage 1) Abrasion, blister, partial thickness skin loss involving epidermis and/or dermis (Stage 2) Full thickness skin loss involving damage or necrosis of SQ tissue. (Stage 3) Necrosis of soft tissue through to underlying muscle, tendon, or bone. (Stage 4) Purple or maroon discolored skin or blood filled blister RISK FACTORS: Immobility/ bedridden/ debility Paralysis/ Paraplegia TREATMENTS: Wound care consult ER NURSING DOCUMENTED STAGE III PRESSURE ULCER TO LEFT HEEL. THIS ISN'T MENTIONED AGAIN DURING THE VISIT. PLEASE CLARIFY. (This form is maintained as a part of the permanent medical record) 2014 [email or web address] All Rights Reserved [email or web address] [phone] MTDD
== END 2017-10-07 12:50 | disposition home or self-care (01) | DRG 690 ==
LOC: ERS 05:25 → SDC 08:36 → SURG A 08:39
PROVIDERS: ADMIT Family Medicine; ATTEND Family Medicine
DX: N10 Acute pyelonephritis (principal); G82.20 Paraplegia, unspecified; I24.8 Other forms of acute ischemic heart disease; M35.00 Sjogren syndrome, unspecified; L89.622 Pressure ulcer of left heel, stage 2; B96.1 Klebsiella pneumoniae [K. pneumoniae] as the cause of diseases classified elsewhere; I10 Essential (primary) hypertension; K59.00 Constipation, unspecified; F32.9 Major depressive disorder, single episode, unspecified; F41.9 Anxiety disorder, unspecified; Z87.891 Personal history of nicotine dependence; Z88.1 Allergy status to other antibiotic agents; Z88.5 Allergy status to narcotic agent; Z88.0 Allergy status to penicillin; Z88.2 Allergy status to sulfonamides
CPT/HCPCS: 36415; 51701; 70450; 71045; 72040; 74178; 76705; 80048; 80053; 81003; 81015; 82553; 83605; 83690; 83880; 84484; 85025; 85652; 86140; 87040; 87077; 87086; 87186; 93005; 96361; 96365; 96366; 96375; 96376; A4216; A4353; G8987-GO-CI; G8988-GO-CI; G8989-GO-CI; J0692; J1650; J1956; J2270; J2405; J3010; J3370; J7050; Q0162

== ENCOUNTER 2018-05-21 11:11 | Outpatient (CLI) | payer MEDICARE ==
--- NOTE | 2018-05-21 13:35 | PRG ---
DATE OF SERVICE: 05/21/2018 HISTORY: Ms. Angie Marte is a very pleasant 68-year-old who presents to the Wound Center for ev aluation of an ulceration of the left heel. The patient was last seen in the Wound Center in [facility] last year for multiple ulcerations of the right and left feet. The patient was previously presc ribed Heelift boots which she states she stopped utilizing because of minor trauma to her lower legs from the Heelift boots. The patient has no other complaints today. She denies any fever or chills. PHYSICAL EXAMINATION: VITAL SIGNS: Temperature 98.2, pulse 51, respirations 17, blood pressure 163/79. EXTREMITIES: The ulceration over the left heel measures approximately 2.3 x 2.8 cm. Granulation tis garett is present within the wound margins. Nonviable tissue present within the wound margins was debri ded with an excisional full-thickness debridement. No purulent drainage is associated with the wound . No erythema of the skin surrounding the wound is present. No maceration of the skin of the periwo und is noted. A posterior tibial pulse is palpable on the left. Mild to moderate edema of the left foot and lower leg is present on exam today. ASSESSMENT AND PLAN: 1. Ulceration of left heel. Dressing changes of Medihoney, 4 x 4s and an ABD, Kerlix, and an Eros ba ndage will be initiated today. These dressing changes are to be performed on a daily basis or altern atively every other day after cleansing and irrigation with the assistance of the patient has. I nima l see Ms. Marte again in two weeks. Home health will also be assisting the patient with dressing c hanges. 2. Lymphedema tarda. 3. Hypertension. 4. Paraplegia. 5. Sjogren's.
[2018-05-21] MEDS ORDERED: Sodium Chloride 0.9% 15 ML NEB ONE (20:00)
== END 2018-05-21 11:12 | disposition home or self-care (01) ==
LOC: WCC 11:11
PROVIDERS: ATTEND Family Medicine
DX: L97.429 Non-pressure chronic ulcer of left heel and midfoot with unspecified severity (principal); I89.0 Lymphedema, not elsewhere classified; G82.20 Paraplegia, unspecified; I10 Essential (primary) hypertension; M35.00 Sjogren syndrome, unspecified
CPT/HCPCS: 11042; A4218

== ENCOUNTER 2018-05-31 09:09 | Outpatient (CLI) | payer MEDICARE ==
--- NOTE | 2018-05-31 10:11 | PRG ---
DATE OF SERVICE: 05/31/2018 HISTORY: Ms. Angie Marte is a very pleasant 68-year-old who presents to the Wound Center for ev aluation of an ulceration of the left heel. For this ulceration, the patient has been receiving dres sing changes of Medihoney with the assistance of Home Health. The patient today reports the presence of a new ulceration over the dorsum of the left foot. The patient has no other complaints today. S he denies any fever or chills. PHYSICAL EXAMINATION: VITAL SIGNS: Temperature 97.7, pulse 66, respirations 16, blood pressure 132/62. EXTREMITIES: The ulceration over the left heel measures approximately 2.5 x 2.0 cm. The new ulcerat ion over the dorsum of the left foot measures approximately 2.2 x 4.0 cm. No purulent drainage is as sociated with either wound. No cellulitis of the left foot is appreciated. No maceration of the ski n of the periwound of either wound is noted. Edema of the left foot is present on exam today. ASSESSMENT AND PLAN: 1. Ulceration of left heel. The patient also has a new ulceration over the dorsum of the left foot. Dressing changes of Medihoney, 4 x 4s and an ABD and Kerlix will be continued on a daily basis or a lternatively every other day after cleansing and irrigation with the assistance of Home Health. The Eros bandage at the time of dressing changes will be discontinued. I will see Ms. Marte again in tw o weeks. 2. Lymphedema tarda. 3. Hypertension. 4. Paraplegia. 5. Sjogren's.
[2018-05-31] MEDS ORDERED: Sodium Chloride 0.9% 15 ML NEB ONE (18:00)
== END 2018-05-31 09:10 | disposition home or self-care (01) ==
LOC: WCC 09:09
PROVIDERS: ATTEND Family Medicine
DX: L97.429 Non-pressure chronic ulcer of left heel and midfoot with unspecified severity (principal); I89.0 Lymphedema, not elsewhere classified; I10 Essential (primary) hypertension; G82.20 Paraplegia, unspecified; M35.00 Sjogren syndrome, unspecified
CPT/HCPCS: 97602; A4218

== ENCOUNTER 2018-06-20 11:27 | Outpatient (CLI) | payer MEDICARE ==
--- NOTE | 2018-06-20 14:59 | PRG ---
DATE OF SERVICE: 06/20/2018 SUBJECTIVE: Ms. Angie Marte is a very pleasant 68-year-old, accompanied by her , who presents to the Wound Center for evaluation of an ulceration of the dorsum of the left foot. The patient also has an ulceration at the left heel in addition to an ulceration of the right calf. For the preceding wounds, the patient has been receiving dressing changes of Medihoney three times per week after cleansing and irrigation with the assistance of Home Health. The patient has no complaints today. She denies any fever or chills. PHYSICAL EXAMINATION: VITAL SIGNS: Temperature 98.1, pulse 64, respirations 17, and blood pressure 151/64. EXTREMITIES: The ulceration over the dorsum of the left foot measures approximately 3.7 x 2.3 cm. The ulceration over the left heel measures approximately 1.1 x 1.0 cm. The ulceration over the right calf measures approximately 0.9 x 1.0 cm. Granulation tissue is present within the margins of each wound. No purulent drainage is associated with any of the wounds. No cellulitis of the right or left lower extremities is present. No maceration of the skin of periwound of any of the wounds is noted. Edema of the right and left feet is present on exam today. ASSESSMENT AND PLAN: 1. Ulceration of dorsum of left foot. The patient also has an ulceration over the left heel in addition to an ulceration over the right calf. Dressing changes of Medihoney for the preceding wounds will be continued three times per week after cleansing and irrigation with the assistance of Home Health. I will see Ms. Marte again in 2 to 3 weeks. 2. Lymphedema tarda. 3. Hypertension. 4. Paraplegia. 5. Sjogren's. Job ID: [id number]
== END 2018-06-20 11:28 | disposition home or self-care (01) ==
LOC: WCC 11:27
PROVIDERS: ATTEND Family Medicine
DX: L97.529 Non-pressure chronic ulcer of other part of left foot with unspecified severity (principal); I89.0 Lymphedema, not elsewhere classified; I10 Essential (primary) hypertension; G82.20 Paraplegia, unspecified; M35.00 Sjogren syndrome, unspecified

== ENCOUNTER 2018-07-12 11:07 | Outpatient (CLI) | payer MEDICARE ==
--- NOTE | 2018-07-12 11:43 | PRG ---
DATE OF SERVICE: 07/12/2018 HISTORY: Ms. Angie Marte is a very pleasant 68-year-old, accompanied by her , who presents to the Wound Center for evaluation of an ulceration of the dorsum of the left foot. The patient also has an ulceration of the left heel in addition to an ulceration of the right calf. For the preceding wounds, the patient has been receiving dressing changes of Medihoney 3 times per week after cleansing and irrigation with the assistance of Home Health. Ms. Marte has no complaints today. She denies any fever or chills. OBJECTIVE: VITAL SIGNS: Temperature 98.0, pulse 60, respirations 18, blood pressure 160/71. EXTREMITIES: The ulceration over the dorsum of the left foot measures approximately 3.9 x 1.5 cm. The dimensions of the wound at the time of the patient's last visit were approximately 3.7 x 2.3 cm. The ulceration over the left measures approximately 0.2 x 0.2 cm. The ulceration over the right calf measures approximately 1.1 x 0.8 cm. Granulation tissue is present within the margins of each wound. No purulent drainage is associated with any of the wounds. No cellulitis of the right or left lower extremity is present. No maceration of the skin of the periwound of any of the wounds is noted. No significant edema of the right or left foot is present on exam today. ASSESSMENT AND PLAN: 1. Ulceration of dorsum of left foot. The patient also has an ulceration over the left heel in addition to an ulceration over the right calf. Dressing changes of Medihoney for the preceding wounds will be continued 3 times per week after cleansing and irrigation with the assistance of Home Health. I will see Ms. Marte again in 3 to 4 weeks. 2. Lymphedema tarda. 3. Hypertension. 4. Paraplegia. 5. Sjogren's. Job ID: [id number]
[2018-07-12] MEDS ORDERED: Sodium Chloride 0.9% 15 ML NEB ONE (15:00)
== END 2018-07-12 11:08 | disposition home or self-care (01) ==
LOC: WCC 11:07
PROVIDERS: ATTEND Family Medicine
DX: L97.429 Non-pressure chronic ulcer of left heel and midfoot with unspecified severity (principal); L97.519 Non-pressure chronic ulcer of other part of right foot with unspecified severity; I89.0 Lymphedema, not elsewhere classified; I10 Essential (primary) hypertension; G82.20 Paraplegia, unspecified; M35.00 Sjogren syndrome, unspecified
CPT/HCPCS: 97602; A4218

== ENCOUNTER 2018-08-02 11:30 | Outpatient (CLI) | payer MEDICARE ==
--- NOTE | 2018-08-02 12:59 | PRG ---
DATE OF SERVICE: 08/02/2018 SUBJECTIVE: Ms. Angie Marte is a very pleasant 68-year-old, accompanied by her , who presents to the Wound Center for evaluation of an ulceration of the dorsum of the left foot. The patient also has an ulceration of the left heel in addition to an ulceration of the right calf. For the preceding wounds, the patient has been receiving dressing changes of Medihoney 3 times per week after cleansing and irrigation with the assistance of Home Health. The patient has no complaints today. She denies any fever or chills. OBJECTIVE: VITAL SIGNS: Temperature 98.4, pulse 65, blood pressure 121/60. EXTREMITIES: The ulceration over the dorsum of the left foot measures approximately 1.1 x 3.1 cm. The dimensions of the wound at the time of the patient's last visit were approximately 3.9 x 1.5 cm. The ulceration over the left heel has completely healed. The ulceration over the right calf measures approximately 1.8 x 0.6 cm. Granulation tissue is present within the margins of both wounds. No purulent drainage is associated with either wound. No cellulitis of the right or left lower extremity is present. No maceration of the skin of the periwound of either wound is noted. No significant edema of the right or left foot is present on exam today. Pedal pulses palpable on the right and on the left. ASSESSMENT AND PLAN: 1. Ulceration of dorsum of left foot. The patient also has an ulceration over the right calf. The ulceration over the left heel has completely healed. Dressing changes of Medihoney for both remaining wounds will be continued 3 times per week after cleansing and irrigation with the assistance of Home Health. I will see Ms. Marte again in 3 to 4 weeks. 2. Lymphedema tarda. 3. Hypertension. 4. Paraplegia. 5. Sjogren's. Job ID: [id number]
[2018-08-02] MEDS ORDERED: Sodium Chloride 0.9% 15 ML NEB ONE (15:30)
== END 2018-08-02 11:31 | disposition home or self-care (01) ==
LOC: WCC 11:30
PROVIDERS: ATTEND Family Medicine
DX: L97.519 Non-pressure chronic ulcer of other part of right foot with unspecified severity (principal); L97.529 Non-pressure chronic ulcer of other part of left foot with unspecified severity; I10 Essential (primary) hypertension; M35.00 Sjogren syndrome, unspecified; I89.0 Lymphedema, not elsewhere classified; G82.20 Paraplegia, unspecified
CPT/HCPCS: A4218

== ENCOUNTER 2018-08-22 11:18 | Outpatient (CLI) | payer MEDICARE ==
--- NOTE | 2018-08-22 13:02 | PRG ---
DATE OF SERVICE: 08/22/2018 HISTORY: Ms. Angie Marte is a very pleasant 68-year-old accompanied by her , who presents to the Wound Center for evaluation of an ulceration of the dorsum of the left foot. The patient also has an ulceration of the left heel in addition to an ulceration of the right calf. For the preceding wounds, the patient has been receiving dressing changes of Medihoney 3 times per week after cleansing and irrigation with the assistance of Home Health. Ms. Marte has no complaints today. She denies any fever or chills. PHYSICAL EXAMINATION: VITAL SIGNS: Temperature 98.1, pulse 68, blood pressure 132/58. EXTREMITIES: The ulceration over the dorsum of the left foot measures approximately 1.0 x 2.0 cm. The dimensions of the wound at the time of the patient's last visit were approximately 1.1 x 3.1 cm. The ulceration over the left heel has healed completely and remains healed. The ulceration over the right calf measures approximately 0.8 x 0.5 cm. Granulation tissue is present within the margins of both wounds. No purulent drainage is associated with either wound. No cellulitis of the right or left lower extremity is present. No maceration of the skin of the periwound of either wound is noted. No significant edema of the right or left foot is present on exam today. ASSESSMENT AND PLAN: 1. Ulceration of dorsum of left foot. The patient also has an ulceration over the right calf. The ulceration over the left heel has completely healed and remains healed. Dressing changes of Medihoney for both remaining wounds will be continued 3 times per week after cleansing and irrigation with the assistance of Home Health. I will see Ms. Marte again in 3 to 4 weeks if her wounds are still present at this time. 2. Lymphedema tarda. 3. Hypertension. 4. Paraplegia. 5. Sjogren's. Job ID: [id number]
== END 2018-08-22 11:19 | disposition home or self-care (01) ==
LOC: WCC 11:18
PROVIDERS: ATTEND Family Medicine
DX: L97.529 Non-pressure chronic ulcer of other part of left foot with unspecified severity (principal); I10 Essential (primary) hypertension; I89.0 Lymphedema, not elsewhere classified; G82.20 Paraplegia, unspecified; M35.00 Sjogren syndrome, unspecified
CPT/HCPCS: 97602; A4218

== ENCOUNTER 2018-09-19 11:31 | Outpatient (CLI) | payer MEDICARE ==
--- NOTE | 2018-09-19 12:42 | PRG ---
DATE OF SERVICE: 09/19/2018 HISTORY: Ms. Angie Marte is a very pleasant 68-year-old, accompanied by her , who presents to the Wound Center for evaluation of an ulceration of the dorsum of the left foot. The patient also has an ulceration of the left heel in addition to an ulceration of the right calf. For the preceding wounds, the patient has been receiving dressing changes of Medihoney 3 times per week after cleansing and irrigation with the assistance of Home Health. The patient has no complaints today. She denies any fever or chills. PHYSICAL EXAMINATION: VITAL SIGNS: Temperature 97.5, pulse 56, respirations 18, and blood pressure 131/58. EXTREMITIES: The ulceration over the dorsum of the left foot has healed completely. The ulceration over the right calf has also healed completely. The ulceration over the left heel measures approximately 0.6 x 0.5 cm. No purulent drainage is associated with the wound. No erythema of the skin surrounding the wound is present. No maceration of the skin of the periwound is noted. No significant edema of the left foot is present on exam today. ASSESSMENT AND PLAN: 1. Ulceration over left heel, as described above. The ulceration over the dorsum of the left foot and over the right calf have both healed completely. Dressing changes of Medihoney for the left heel wound will be discontinued. Dressing changes of Aquacel Ag will be initiated. Dressing changes of Aquacel Ag for the left heel wound are to be performed 3 times per week after cleansing and irrigation with the assistance of Home Health. I will see Ms. Marte again in 3 to 4 weeks if her wound is still present at this time. 2. Lymphedema tarda. 3. Hypertension. 4. Paraplegia. 5. Sjogren's. Job ID: [id number]
[2018-09-19] MEDS ORDERED: Sodium Chloride 0.9% 15 ML NEB ONE (18:00)
== END 2018-09-19 11:32 | disposition home or self-care (01) ==
LOC: WCC 11:31
PROVIDERS: ATTEND Family Medicine
DX: L97.429 Non-pressure chronic ulcer of left heel and midfoot with unspecified severity (principal); I89.0 Lymphedema, not elsewhere classified; I10 Essential (primary) hypertension; G82.20 Paraplegia, unspecified; M35.00 Sjogren syndrome, unspecified
CPT/HCPCS: A4218

== ENCOUNTER 2018-10-17 11:42 | Outpatient (CLI) | payer MEDICARE ==
--- NOTE | 2018-10-17 12:07 | PRG ---
DATE OF SERVICE: 10/17/2018 HISTORY: Ms. Angie Marte is a very pleasant 68-year-old, accompanied by her who presents to the Wound Center for evaluation of a recurrent ulceration of the dorsum of the left foot. The patient has no other complaints today. She denies any fever or chills. PHYSICAL EXAMINATION: VITAL SIGNS: Temperature 97.9, pulse 58, blood pressure 182/79. EXTREMITIES: An ulceration over the dorsum of the left foot is present which measures approximately 0.6 x 0.5 cm. Granulation tissue is present within the wound margins. No purulent drainage is associated with the wound. No erythema of the skin surrounding the wound is present. No maceration of the skin of the periwound is noted. Edema of the left foot is present on today's exam. ASSESSMENT AND PLAN: 1. Ulceration, recurrent, over dorsum of left foot. Dressing changes of Medihoney and Mepilex border are to be performed 3 times per week after cleansing and irrigation with the assistance of Home Health. I will see Ms. Marte again in 2 to 4 weeks if her wound is still present at this time. 2. Lymphedema tarda. 3. Hypertension. 4. Paraplegia. 5. Sjogren's. Job ID: [id number]
[2018-10-17] MEDS ORDERED: Sodium Chloride 0.9% 15 ML NEB ONE (18:00)
== END 2018-10-17 11:43 | disposition home or self-care (01) ==
LOC: WCC 11:42
PROVIDERS: ATTEND Family Medicine
DX: S91.302D Unspecified open wound, left foot, subsequent encounter (principal); I89.0 Lymphedema, not elsewhere classified; I10 Essential (primary) hypertension; G82.20 Paraplegia, unspecified; M35.00 Sjogren syndrome, unspecified
CPT/HCPCS: A4218

== ENCOUNTER 2019-01-23 13:23 | Outpatient (CLI) | payer MEDICARE ==
--- NOTE | 2019-01-23 14:03 | PRG ---
DATE OF SERVICE: 01/23/2019 HISTORY: Ms. Angie Marte is a very pleasant 68-year-old who presents to the Wound Center for evaluation of multiple ulcerations of the right and left lower extremities in addition to a pressure ulceration over the sacrum. The patient states that her is recovering from neck surgery. She states that the wounds developed subsequent to his surgery. PHYSICAL EXAMINATION: VITAL SIGNS: Temperature 98.0, pulse 68, respirations 18, and blood pressure 122/76. EXTREMITIES: Ulcerations are present over the dorsum of the left foot, left heel, and left ankle, which measure approximately 3.3 x 3.1 cm, 0.8 x 0.8 cm, and 0.3 x 0.3 cm. Ulcerations are also present over the right heel, right great toe, and sacrum, which measure approximately 1.0 x 1.0 cm, 1.0 x 1.3 cm, and 6.0 x 3.0 cm. No purulent drainage is associated with any of the wounds. No cellulitis of the right or left lower extremity or presacral region is appreciated. Edema of the right and left lower extremities is present on exam today. ASSESSMENT AND PLAN: 1. Multiple pressure ulcerations as described above. The patient has a recurrent sacral pressure ulceration. The importance of offloading of the sacral wound has been discussed with the patient. The patient states she sleeps in a hospital bed at night but sits in her wheelchair during the day. The need for proper offloading of the sacral pressure ulceration while seated has been emphasized to the patient. She has been recommended to utilize a ROHO cushion for optimal offloading of her sacral wound. Dressing changes of Multidex powder and Mepilex border for all pressure ulcerations will be initiated today. These dressing changes are to be performed 3 times per week after cleansing and irrigation with the assistance of Home Health. I will see Ms. Marte again in 2 weeks. 2. Lymphedema tarda. 3. Hypertension. 4. Paraplegia. 5. Sjogren syndrome. Job ID: [id number] MTDD
== END 2019-01-23 13:24 | disposition home or self-care (01) ==
LOC: WCC 13:23
PROVIDERS: ATTEND Family Medicine
DX: L89.159 Pressure ulcer of sacral region, unspecified stage (principal); L97.429 Non-pressure chronic ulcer of left heel and midfoot with unspecified severity; L97.519 Non-pressure chronic ulcer of other part of right foot with unspecified severity; L97.419 Non-pressure chronic ulcer of right heel and midfoot with unspecified severity; I89.0 Lymphedema, not elsewhere classified; I10 Essential (primary) hypertension; G82.20 Paraplegia, unspecified; M35.00 Sjogren syndrome, unspecified
CPT/HCPCS: 97602; A4218

== ENCOUNTER 2019-02-14 16:12 | Outpatient (CLI) | payer MEDICARE ==
--- NOTE | 2019-02-14 12:41 | PRG ---
DATE OF SERVICE: 02/14/2019 HISTORY: Ms. Angie Marte is a very pleasant 68-year-old, who presents to the Wound Center for evaluation of multiple ulcerations of the right and left lower extremities. The patient has been receiving assistance with dressing changes by Home Health as well as her . Ms. Marte has no complaints today. She denies any fever or chills. PHYSICAL EXAMINATION: VITAL SIGNS: Temperature 98.3, pulse 58, respirations 17, and blood pressure 134/63. EXTREMITIES: Only one ulceration over the right heel remains which measures approximately 0.7 x 1.1 cm. Granulation tissue is present within the wound margins. No purulent drainage is associated with the wound. No erythema of the skin surrounding the wound is present. No maceration of the skin of the periwound is noted. No significant edema of the right lower extremity is present on exam today. ASSESSMENT AND PLAN: 1. Multiple pressure ulcerations. As stated above, only one pressure ulceration remains. For the remaining ulceration, dressing changes of Multidex powder and Mepilex border will be continued 3 times per week after cleansing and irrigation with the assistance of Home Health. The patient's wound has almost healed completely. The patient has been reassured that the wound is healing without complications or any signs of infection. Ms. Marte states that she will return to clinic on an as-needed basis. 2. Lymphedema tarda. 3. Hypertension. 4. Paraplegia. 5. Sjogren's syndrome. Job ID: [id number]
== END 2019-02-14 16:13 | disposition home or self-care (01) ==
LOC: WCC 16:12
PROVIDERS: ATTEND Family Medicine
DX: L89.619 Pressure ulcer of right heel, unspecified stage (principal); I89.0 Lymphedema, not elsewhere classified; I10 Essential (primary) hypertension; G82.20 Paraplegia, unspecified; M35.00 Sjogren syndrome, unspecified
CPT/HCPCS: 97602

== ENCOUNTER 2019-05-09 11:49 | Outpatient (CLI) | payer MEDICARE ==
--- NOTE | 2019-05-09 13:35 | PRG ---
DATE OF SERVICE: 05/09/2019 HISTORY: Ms. Angie Marte is a very pleasant 69-year-old accompanied by her spouse, who presents to the Wound Center for evaluation of an ulceration of the dorsum of the left foot as well as an ulceration of the left heel. The patient states that she was seen by Dr. Gayle and prescribed a topical preparation for her wound over the dorsum of the left foot, which resulted in a significant improvement in the appearance of the wound. The patient states that she continues to receive assistance with dressing changes by Home Health. The patient has no other complaints today. She denies any fever or chills. PHYSICAL EXAMINATION: VITAL SIGNS: Temperature 98.3, pulse 63, respirations 17, and blood pressure 133/64. EXTREMITIES: An ulceration over the dorsum of the left foot is present, which measures approximately 1.6 x 4.1 cm. An ulceration over the right heel is present, which measures approximately 1.3 x 1.7 cm. No purulent drainage is associated with either wound. No cellulitis of the right or left foot is appreciated. No maceration of the skin of the periwound of either wound is noted. ASSESSMENT AND PLAN: 1. Ulceration over dorsum of left foot and over right heel as described above. The present dressing changes for the ulceration over the dorsum of the left foot will be continued. These dressing changes are to be performed 3 times per week after cleansing and irrigation with the assistance of Home Health. Mepilex Border will be utilized as a secondary dressing. Orders will be transmitted to Home Health for the preceding dressing changes for the ulceration of the right heel. Both wounds appear to be healing without complications or any signs of infection and Ms. Marte states that she will return to clinic on an as-needed basis. 2. Lymphedema tarda. 3. Hypertension. 4. Paraplegia. 5. Sjogren's syndrome. Job ID: [id number]
== END 2019-05-09 11:50 | disposition home or self-care (01) ==
LOC: WCC 11:49
PROVIDERS: ATTEND Family Medicine
DX: L97.419 Non-pressure chronic ulcer of right heel and midfoot with unspecified severity (principal); L97.529 Non-pressure chronic ulcer of other part of left foot with unspecified severity; I89.0 Lymphedema, not elsewhere classified; I10 Essential (primary) hypertension; G82.20 Paraplegia, unspecified; M35.00 Sjogren syndrome, unspecified

== ENCOUNTER 2020-09-15 21:01 | Inpatient (IN) | payer MEDICARE ==
[2020-09-15 21:58] VITALS: BMI 26.2
[2020-09-15] MEDS: cefTRIAXone\\ROCEPHIN 2 GM VIAL IVPB SCH (23:13)
[2020-09-15] MEDS: Sodium Chloride 0.9% 1,000 ML IV SCH (23:14)
[2020-09-16] MEDS: metroNIDAZOLE 500 MG in Premix Bag 1 BAG IVPB SCH ×2 (00:23→09:19)
[2020-09-16] MEDS: Vancomycin 1 GM in Premix Bag 1 BAG IVPB SCH (01:32)
[2020-09-16 07:00] LABS: Anion Gap 11 mmol/L (10-20); BUN (Urea Nitrogen) 9 mg/dL (9.8-20.1); Calc. Creatinine Clearance 66 mL/min (70-130); Calcium 7.6 mg/dL (7.8-10.44); Carbon Dioxide 19 mmol/L (23-31); Chloride 115 mmol/L (98-107); Glucose 83 mg/dL (83-110); Potassium 3.4 mmol/L (3.5-5.1); Sodium 142 mmol/L (136-145)
[2020-09-16] MEDS: Gabapentin 300 MG CAP PO SCH ×2 (09:19→20:10)
[2020-09-16] MEDS: Lactinex Tablet PO SCH (09:19)
[2020-09-16] MEDS: Enoxaparin Sodium 30 MG/0.3 ML SYRINGE SC SCH (09:20)
[2020-09-16] MEDS: Sodium Chloride 0.9% 1,000 ML IV SCH (09:20)
[2020-09-16] MEDS ORDERED: Loperamide HCl 2 MG CAP PO PRN (10:33)
[2020-09-16] MEDS ORDERED: Potassium Chloride 20 MEQ TAB PO SCH (10:45)
[2020-09-16] MEDS: GenTeal Tears Severe Dry Eye GEL 10 G EA EYE SCH ×2 (14:56→20:10)
[2020-09-16] MEDS: Aspirin 81 mg Enteric Coated Tablet PO SCH (20:09)
[2020-09-16] MEDS: traMADol HCl 50 MG TAB PO PRN (22:13)
[2020-09-16] MEDS: cefTRIAXone\\ROCEPHIN 2 GM VIAL IVPB SCH (22:15)
[2020-09-16] MEDS: Acetaminophen 325 MG TAB PO PRN (23:03)
[2020-09-17 00:30] LABS: Vancomycin, Trough 9.7 ug/mL
[2020-09-17] MEDS: Vancomycin 1 GM in Premix Bag 1 BAG IVPB SCH (00:58)
[2020-09-17] MEDS: Sodium Chloride 0.9% 1,000 ML IV SCH ×2 (00:58→06:17)
[2020-09-17] MEDS ORDERED: VANCOMYCIN 1.25 GM/250 ML BAG 1.25 GM in Premix Bag 1 BAG IVPB SCH (01:00)
[2020-09-17 05:14] LABS: #Eosinphils 0.2 thou/uL (0.0-0.7); #Lymphocytes 1.8 thou/uL (1.20-3.40); #Monocytes 0.6 thou/uL (0.11-0.59); #Neutrophils 6.2 thou/uL (1.40-6.50); %Basophils 0.4 % (0.0-1.0); %Eosinophils 1.7 % (0.0-10.0); %Lymphocytes 19.9 % (21.0-51.0); %Monocytes 7.3 % (0.0-10.0); %Neutrophils 70.7 % (42.0-75.0); Mean Corpuscular HGB CONC 32.2 g/dL (32.0-36.0); Mean Corpuscular Hemoglobin 31.8 pg (27.0-31.0); Mean Corpuscular Volume 98.7 fL (78.0-98.0); Mean Platelet Volume 7.2 fL (7.4-10.4); Platelet Count 276 thou/uL (130-400); RBC Distribution Width 13.2 % (11.5-14.5); Red Blood Cell (RBC) Count 2.84 mill/uL (4.20-5.40); White Blood Cell (WBC) Count 8.8 thou/uL (4.8-10.8)
[2020-09-17 05:34] LABS: ALT (SGPT) 20 U/L (8-55); AST (SGOT) 12 U/L (5-34); Albumin 2.3 g/dL (3.4-4.8); Alkaline Phosphatase 103 U/L (40-110); Anion Gap 10 mmol/L (10-20); BUN (Urea Nitrogen) 7 mg/dL (9.8-20.1); Bilirubin, Total Less than 0.2 mg/dL (0.2-1.2); Calc. Creatinine Clearance 65 mL/min (70-130); Calcium 7.4 mg/dL (7.8-10.44); Carbon Dioxide 21 mmol/L (23-31); Chloride 117 mmol/L (98-107); Globulin 1.8 g/dL (2.4-3.5); Glucose 80 mg/dL (83-110); Potassium 3.8 mmol/L (3.5-5.1); Protein, Total 4.1 g/dL (5.8-8.1); Sodium 144 mmol/L (136-145)
[2020-09-17 05:35] LABS: Anion Gap 10 mmol/L (10-20); BUN (Urea Nitrogen) 7 mg/dL (9.8-20.1); Calc. Creatinine Clearance 67 mL/min (70-130); Calcium 7.7 mg/dL (7.8-10.44); Carbon Dioxide 20 mmol/L (23-31); Chloride 116 mmol/L (98-107); Glucose 78 mg/dL (83-110); Magnesium 1.7 mg/dL (1.6-2.6); Potassium 3.6 mmol/L (3.5-5.1); Sodium 142 mmol/L (136-145)
[2020-09-17] MEDS: Bupropion 150 MG XL TAB PO SCH (09:05)
[2020-09-17] MEDS: Gabapentin 300 MG CAP PO SCH ×2 (09:05→21:48)
[2020-09-17] MEDS: Lactinex Tablet PO SCH (09:05)
[2020-09-17] MEDS: Enoxaparin Sodium 30 MG/0.3 ML SYRINGE SC SCH (09:06)
[2020-09-17] MEDS: GenTeal Tears Severe Dry Eye GEL 10 G EA EYE SCH ×3 (09:06→21:49)
[2020-09-17] MEDS ORDERED: Lorazepam 0.5 MG TAB PO PRN (17:30)
[2020-09-17] MEDS ORDERED: diphenhydrAMINE 25 MG CAP PO PRN (21:00)
[2020-09-17] MEDS ORDERED: QUINAPRIL HCL 40 MG PO SCH (21:00)
[2020-09-17] MEDS: Aspirin 81 mg Enteric Coated Tablet PO SCH (21:47)
[2020-09-17] MEDS: Lisinopril 20 MG TAB PO SCH (21:48)
[2020-09-17] MEDS: cefTRIAXone\\ROCEPHIN 2 GM VIAL IVPB SCH (23:13)
[2020-09-18] MEDS: Lorazepam 1 MG TAB PO PRN (00:18)
[2020-09-18 05:59] LABS: #Eosinphils 0.2 thou/uL (0.0-0.7); #Lymphocytes 1.6 thou/uL (1.20-3.40); #Monocytes 0.8 thou/uL (0.11-0.59); #Neutrophils 7.3 thou/uL (1.40-6.50); %Basophils 0.3 % (0.0-1.0); %Eosinophils 1.8 % (0.0-10.0); %Lymphocytes 16.6 % (21.0-51.0); %Monocytes 7.7 % (0.0-10.0); %Neutrophils 73.6 % (42.0-75.0); Hemoglobin 9.1 g/dL (12.0-16.0); Mean Corpuscular HGB CONC 32.3 g/dL (32.0-36.0); Mean Corpuscular Hemoglobin 30.9 pg (27.0-31.0); Mean Corpuscular Volume 95.9 fL (78.0-98.0); Mean Platelet Volume 7.6 fL (7.4-10.4); Platelet Count 340 thou/uL (130-400); RBC Distribution Width 13.4 % (11.5-14.5); Red Blood Cell (RBC) Count 2.95 mill/uL (4.20-5.40); White Blood Cell (WBC) Count 9.9 thou/uL (4.8-10.8)
[2020-09-18 06:16] LABS: Anion Gap 12 mmol/L (10-20); BUN (Urea Nitrogen) 7 mg/dL (9.8-20.1); Calc. Creatinine Clearance 71 mL/min (70-130); Calcium 7.9 mg/dL (7.8-10.44); Carbon Dioxide 17 mmol/L (23-31); Chloride 115 mmol/L (98-107); Glucose 85 mg/dL (83-110); Magnesium 1.6 mg/dL (1.6-2.6); Potassium 3.3 mmol/L (3.5-5.1); Sodium 141 mmol/L (136-145)
[2020-09-18] MEDS ORDERED: Lidocaine 1% PF 5 ML VIAL ONE (09:15)
[2020-09-18] MEDS ORDERED: PROPOFOL 200 MG/20 ML VIAL ONE (09:15)
[2020-09-18] MEDS ORDERED: Rocuronium Bromide 10 MG/ML (10ML VIAL) ONE (09:15)
[2020-09-18] MEDS ORDERED: Fentanyl 100 MCG/2 ML VIAL ONE (11:02)
[2020-09-18] MEDS ORDERED: Lidocaine 1% w/Epinephrine 1:100K 20 ML VIAL ONE (11:02)
[2020-09-18] MEDS ORDERED: Bupivacaine 0.25% HCL 30 ML VIAL ONE (11:02)
[2020-09-18] MEDS ORDERED: Ketamine 50 MG/ML (10ML VIAL) ONE (11:03)
[2020-09-18] MEDS ORDERED: Famotidine/PF 20 mg/2ml Vial ONE (11:03)
[2020-09-18] MEDS: Gabapentin 300 MG CAP PO SCH ×2 (11:38→20:48)
[2020-09-18] MEDS: Enoxaparin Sodium 30 MG/0.3 ML SYRINGE SC SCH (11:38)
[2020-09-18] MEDS: Bupropion 150 MG XL TAB PO SCH (11:38)
[2020-09-18] MEDS: GenTeal Tears Severe Dry Eye GEL 10 G EA EYE SCH ×3 (11:38→21:25)
[2020-09-18] MEDS: Lactinex Tablet PO SCH (11:39)
[2020-09-18] MEDS ORDERED: SUGAMMADEX SODIUM 200 MG/2 ML VIAL ONE (12:18)
[2020-09-18] MEDS ORDERED: Fluconazole 100 MG TAB PO SCH (14:00)
[2020-09-18] MEDS: traMADol HCl 50 MG TAB PO PRN (15:43)
[2020-09-18] MEDS ORDERED: Potassium Chloride 20 MEQ TAB PO SCH (16:15)
[2020-09-18] MEDS: Aspirin 81 mg Enteric Coated Tablet PO SCH (20:45)
[2020-09-18] MEDS: traMADol HCl 50 MG TAB PO SCH (20:46)
[2020-09-18] MEDS: Lisinopril 20 MG TAB PO SCH (20:46)
[2020-09-18] MEDS: cefTRIAXone\\ROCEPHIN 2 GM VIAL IVPB SCH (23:06)
[2020-09-19 05:40] LABS: #Eosinphils 0.1 thou/uL (0.0-0.7); #Lymphocytes 1.9 thou/uL (1.20-3.40); #Monocytes 0.9 thou/uL (0.11-0.59); %Basophils 0.2 % (0.0-1.0); %Eosinophils 0.5 % (0.0-10.0); %Lymphocytes 13.6 % (21.0-51.0); %Monocytes 6.3 % (0.0-10.0); %Neutrophils 79.4 % (42.0-75.0); Hemoglobin 9.5 g/dL (12.0-16.0); Mean Corpuscular HGB CONC 33.2 g/dL (32.0-36.0); Mean Corpuscular Hemoglobin 31.8 pg (27.0-31.0); Mean Corpuscular Volume 95.6 fL (78.0-98.0); Platelet Count 408 thou/uL (130-400); RBC Distribution Width 13.4 % (11.5-14.5); Red Blood Cell (RBC) Count 2.99 mill/uL (4.20-5.40); White Blood Cell (WBC) Count 13.9 thou/uL (4.8-10.8)
[2020-09-19 05:56] LABS: Anion Gap 14 mmol/L (10-20); BUN (Urea Nitrogen) 7 mg/dL (9.8-20.1); Calc. Creatinine Clearance 71 mL/min (70-130); Carbon Dioxide 19 mmol/L (23-31); Chloride 114 mmol/L (98-107); Glucose 100 mg/dL (83-110); Potassium 3.6 mmol/L (3.5-5.1); Sodium 143 mmol/L (136-145)
[2020-09-19] MEDS: Ondansetron PF 4 MG/2 ML Vial IVP PRN ×2 (07:20→16:03)
[2020-09-19] MEDS: traMADol HCl 50 MG TAB PO SCH ×2 (08:13→21:36)
[2020-09-19] MEDS: Amlodipine 5 MG TAB PO SCH (08:14)
[2020-09-19] MEDS: Gabapentin 300 MG CAP PO SCH ×2 (08:15→21:36)
[2020-09-19] MEDS: Lactinex Tablet PO SCH (08:16)
[2020-09-19] MEDS: Bupropion 150 MG XL TAB PO SCH (08:16)
[2020-09-19] MEDS: Enoxaparin Sodium 30 MG/0.3 ML SYRINGE SC SCH (08:16)
[2020-09-19] MEDS ORDERED: Promethazine HCl 25 MG/ML VIAL IM PRN (10:12)
[2020-09-19] MEDS ORDERED: Promethazine 25 MG TAB PO PRN (10:12)
[2020-09-19] MEDS ORDERED: Polyethylene Glycol OPTH DROP 15 ML BOT EA EYE PRN (10:12)
[2020-09-19] MEDS ORDERED: Promethazine HCl 12.5 MG in Sodium Chloride 0.9% 50 ML IVPB PRN (10:12)
[2020-09-19] MEDS ORDERED: Scopolamine 1.5 mg/72 hour Patch TD SCH (10:15)
[2020-09-19] MEDS: D5 1/2 NS w/20 mEq KCL 1,000 ML IV SCH ×2 (10:53→21:38)
[2020-09-19] MEDS ORDERED: SYSTANE GEL OPHTH DROPS 10 ML EA EYE PRN (10:53)
[2020-09-19] MEDS: GenTeal Tears Severe Dry Eye GEL 10 G EA EYE SCH (11:00)
[2020-09-19] MEDS: traMADol HCl 50 MG TAB PO PRN (11:30)
[2020-09-19] MEDS: guaiFENesin ER 600 MG TAB PO SCH (21:35)
[2020-09-19] MEDS: Cephalexin 250 MG CAP PO SCH (21:35)
[2020-09-19] MEDS: Aspirin 81 mg Enteric Coated Tablet PO SCH (21:35)
[2020-09-19] MEDS: Mirtazapine 15 MG TAB PO SCH (21:36)
[2020-09-19] MEDS: Lisinopril 20 MG TAB PO SCH (21:37)
[2020-09-20] MEDS: Lorazepam 1 MG TAB PO PRN (00:08)
[2020-09-20] MEDS: traMADol HCl 50 MG TAB PO PRN ×2 (00:09→23:20)
[2020-09-20] MEDS: Cephalexin 250 MG CAP PO SCH ×3 (05:57→20:28)
[2020-09-20] MEDS: D5 1/2 NS w/20 mEq KCL 1,000 ML IV SCH ×2 (05:57→18:40)
[2020-09-20 08:40] LABS: #Basophils 0.1 thou/uL (0.0-0.2); #Eosinphils 0.3 thou/uL (0.0-0.7); #Lymphocytes 2.4 thou/uL (1.20-3.40); #Monocytes 0.8 thou/uL (0.11-0.59); %Basophils 0.5 % (0.0-1.0); %Eosinophils 3.1 % (0.0-10.0); %Lymphocytes 24.7 % (21.0-51.0); %Monocytes 8.8 % (0.0-10.0); %Neutrophils 62.9 % (42.0-75.0); Hemoglobin 8.5 g/dL (12.0-16.0); Mean Corpuscular HGB CONC 32.2 g/dL (32.0-36.0); Mean Corpuscular Hemoglobin 31.3 pg (27.0-31.0); Mean Corpuscular Volume 97.2 fL (78.0-98.0); Mean Platelet Volume 6.9 fL (7.4-10.4); Platelet Count 395 thou/uL (130-400); RBC Distribution Width 13.7 % (11.5-14.5); Red Blood Cell (RBC) Count 2.73 mill/uL (4.20-5.40); White Blood Cell (WBC) Count 9.6 thou/uL (4.8-10.8)
[2020-09-20 09:04] LABS: Anion Gap 10 mmol/L (10-20); BUN (Urea Nitrogen) 5 mg/dL (9.8-20.1); Calc. Creatinine Clearance 88 mL/min (70-130); Calcium 7.6 mg/dL (7.8-10.44); Carbon Dioxide 22 mmol/L (23-31); Chloride 117 mmol/L (98-107); Glucose 109 mg/dL (83-110); Potassium 3.9 mmol/L (3.5-5.1); Sodium 145 mmol/L (136-145)
[2020-09-20] MEDS: Bupropion 150 MG XL TAB PO SCH (09:24)
[2020-09-20] MEDS: guaiFENesin ER 600 MG TAB PO SCH ×2 (09:24→20:27)
[2020-09-20] MEDS: Gabapentin 300 MG CAP PO SCH ×2 (09:24→20:27)
[2020-09-20] MEDS: Lactinex Tablet PO SCH (09:24)
[2020-09-20] MEDS: Amlodipine 5 MG TAB PO SCH (09:25)
[2020-09-20] MEDS: traMADol HCl 50 MG TAB PO SCH ×2 (09:25→20:28)
[2020-09-20] MEDS: Fluconazole 100 MG TAB PO SCH (09:26)
[2020-09-20] MEDS: Enoxaparin Sodium 30 MG/0.3 ML SYRINGE SC SCH (09:27)
[2020-09-20] MEDS: Aspirin 81 mg Enteric Coated Tablet PO SCH (20:27)
[2020-09-20] MEDS: Mirtazapine 15 MG TAB PO SCH (20:28)
[2020-09-20] MEDS: Lisinopril 20 MG TAB PO SCH (20:28)
[2020-09-21] MEDS: Cephalexin 250 MG CAP PO SCH ×3 (04:34→21:15)
[2020-09-21] MEDS: Acetaminophen 325 MG TAB PO PRN (04:34)
[2020-09-21] MEDS: D5 1/2 NS w/20 mEq KCL 1,000 ML IV SCH ×2 (04:36→14:40)
[2020-09-21] MEDS: Gabapentin 300 MG CAP PO SCH ×2 (08:37→21:14)
[2020-09-21] MEDS: Enoxaparin Sodium 30 MG/0.3 ML SYRINGE SC SCH (08:37)
[2020-09-21] MEDS: Fluconazole 100 MG TAB PO SCH (08:38)
[2020-09-21] MEDS: Amlodipine 5 MG TAB PO SCH (08:39)
[2020-09-21] MEDS: traMADol HCl 50 MG TAB PO SCH ×2 (08:39→21:15)
[2020-09-21] MEDS: Bupropion 150 MG XL TAB PO SCH (08:39)
[2020-09-21] MEDS: guaiFENesin ER 600 MG TAB PO SCH ×2 (08:40→21:16)
[2020-09-21] MEDS ORDERED: Lactinex Tablet PO SCH ×2 (09:00→15:00)
[2020-09-21] MEDS: Lactinex Tablet PO SCH (15:50)
[2020-09-21 16:01] VITALS: TEMP 98.8
[2020-09-21] MEDS: Aspirin 81 mg Enteric Coated Tablet PO SCH (21:14)
[2020-09-21] MEDS: Mirtazapine 15 MG TAB PO SCH (21:16)
[2020-09-21] MEDS: Lisinopril 20 MG TAB PO SCH (21:18)
[2020-09-21 21:19] VITALS: BP 154/76
[2020-09-22] MEDS ORDERED: Floranex Packet PO SCH (09:00)
== END 2020-09-21 21:30 | disposition home health service (06) | DRG 853 ==
LOC: SURG A 21:01
PROVIDERS: ADMIT Internal Medicine; ATTEND Internal Medicine
PROC: 0T2BX0Z Change Drainage Device in Bladder, External Approach (ICD-10-PCS; 2020-09-15)
PROC: 0KBN0ZZ Excision of Right Hip Muscle, Open Approach (ICD-10-PCS; principal; 2020-09-18)
DX: B37.7 Candidal sepsis (principal); L89.153 Pressure ulcer of sacral region, stage 3; E87.1 Hypo-osmolality and hyponatremia; L03.317 Cellulitis of buttock; G82.21 Paraplegia, complete; N39.0 Urinary tract infection, site not specified; Z20.822 Contact with and (suspected) exposure to COVID-19; M35.00 Sjogren syndrome, unspecified; I12.9 Hypertensive chronic kidney disease with stage 1 through stage 4 chronic kidney disease, or unspecified chronic kidney disease; F41.9 Anxiety disorder, unspecified; F32.9 Major depressive disorder, single episode, unspecified; D63.1 Anemia in chronic kidney disease; B96.4 Proteus (mirabilis) (morganii) as the cause of diseases classified elsewhere; R19.7 Diarrhea, unspecified; G89.4 Chronic pain syndrome; S90.30XA Contusion of unspecified foot, initial encounter; X58.XXXA Exposure to other specified factors, initial encounter; Z88.1 Allergy status to other antibiotic agents; Z79.82 Long term (current) use of aspirin; Z88.2 Allergy status to sulfonamides; Z88.8 Allergy status to other drugs, medicaments and biological substances; Z79.899 Other long term (current) drug therapy; S29.9XXS Unspecified injury of thorax, sequela; V80.010S Animal-rider injured by fall from or being thrown from horse in noncollision accident, sequela; Z87.440 Personal history of urinary (tract) infections; Z87.891 Personal history of nicotine dependence; Z83.3 Family history of diabetes mellitus
CPT/HCPCS: 36415; 71045; 80048; 80053; 80202; 83735; 85025; 87070; 87077; 87086; 87186; 87205; 87324; 87449; J0696; J1650; J2405; J2704; J3010; J3370; J3480; Q0163; S0020; S0028

== ENCOUNTER 2020-09-27 16:09 | Inpatient (IN) | payer MEDICARE, OTHER ==
[~2020-09-27 16:09] MED LIST changes: +Iopamidol-370 76% 500 ML 1 ML ONE; -Sodium Chloride 0.9% 15 ML NEB ONE
[2020-09-27 18:02] LABS: Hemoglobin 10.1 g/dL (12.0-16.0); Mean Corpuscular Hemoglobin 30.7 pg (27.0-31.0); Mean Corpuscular Volume 96.1 fL (78.0-98.0); Mean Platelet Volume 7.4 fL (7.4-10.4); Platelet Count 496 thou/uL (130-400); RBC Distribution Width 13.9 % (11.5-14.5); Red Blood Cell (RBC) Count 3.27 mill/uL (4.20-5.40); White Blood Cell (WBC) Count 17.2 thou/uL (4.8-10.8)
[2020-09-27 18:20] LABS: ALT (SGPT) 16 U/L (8-55); AST (SGOT) 16 U/L (5-34); Albumin 2.9 g/dL (3.4-4.8); Alkaline Phosphatase 128 U/L (40-110); Anion Gap 18 mmol/L (10-20); BUN (Urea Nitrogen) 11 mg/dL (9.8-20.1); Band 20 % (5-11); Bilirubin, Total 0.4 mg/dL (0.2-1.2); Calc. Creatinine Clearance 0 mL/min (70-130); Calcium 8.7 mg/dL (7.8-10.44); Carbon Dioxide 20 mmol/L (23-31); Chloride 108 mmol/L (98-107); Globulin 3.7 g/dL (2.4-3.5); Glucose 65 mg/dL (83-110); Lymphocytes 3 % (21-51); MDiff Complete? YES; Monocytes 3 % (0-10); Neutrophil 74 % (42-75); Platelet Morphology Comment Appears Increased; Potassium 3.5 mmol/L (3.5-5.1); Protein, Total 6.6 g/dL (5.8-8.1); RBC Morphology Normal; Sodium 142 mmol/L (136-145)
[2020-09-27] MEDS ORDERED: Cefepime 2 GM VIAL ONE (18:39)
[2020-09-27] MEDS ORDERED: Sodium Chloride 0.9% 100 ML ONE (18:39)
[2020-09-27] MEDS ORDERED: Vancomycin 1.5 GRAM/300 ML BAG 1.5 GM in Premix Bag 1 BAG IVPB SCH (18:45)
[2020-09-27] MEDS ORDERED: Cefepime 2 GM in Sodium Chloride 0.9% 100 ML IVPB SCH (18:45)
[2020-09-27] MEDS ORDERED: traMADol HCl 50 MG TAB ONE (18:51)
[2020-09-27] MEDS ORDERED: Ondansetron ODT 4 MG TAB PO PRN (20:16)
[2020-09-27] MEDS: Acetaminophen 325 MG TAB PO PRN (21:43)
[2020-09-27] MEDS: HYDROcodone/Acetaminophen 5/325 mg Tablet PO PRN (21:44)
[2020-09-27] MEDS: Ondansetron PF 4 MG/2 ML Vial IVP PRN (21:44)
[2020-09-27] MEDS: Sodium Chloride 0.9% 1,000 ML IV SCH (21:50)
[2020-09-27] MEDS: Clindamycin/D5W 600 MG in Premix Bag 1 BAG IVPB SCH (21:50)
[2020-09-28] MEDS: traMADol HCl 50 MG TAB PO PRN ×3 (03:34→16:35)
[2020-09-28] MEDS: Acetaminophen 325 MG TAB PO PRN (03:34)
[2020-09-28] MEDS: Clindamycin/D5W 600 MG in Premix Bag 1 BAG IVPB SCH (03:34)
[2020-09-28] MEDS ORDERED: Polyethylene Glycol OPTH DROP 15 ML BOT EA EYE PRN (03:55)
[2020-09-28 05:53] LABS: Anion Gap 12 mmol/L (10-20); BUN (Urea Nitrogen) 10 mg/dL (9.8-20.1); Calc. Creatinine Clearance 0 mL/min (70-130); Calcium 7.6 mg/dL (7.8-10.44); Carbon Dioxide 19 mmol/L (23-31); Chloride 112 mmol/L (98-107); Glucose 95 mg/dL (83-110); Potassium 3.2 mmol/L (3.5-5.1); Sodium 140 mmol/L (136-145)
[2020-09-28 05:54] LABS: #Eosinphils 0.1 thou/uL (0.0-0.7); #Lymphocytes 1.8 thou/uL (1.20-3.40); #Monocytes 1.1 thou/uL (0.11-0.59); #Neutrophils 8.1 thou/uL (1.40-6.50); %Basophils 0.4 % (0.0-1.0); %Eosinophils 0.9 % (0.0-10.0); %Lymphocytes 15.8 % (21.0-51.0); %Monocytes 9.8 % (0.0-10.0); %Neutrophils 73.1 % (42.0-75.0); Hemoglobin 7.9 g/dL (12.0-16.0); Mean Corpuscular HGB CONC 31.1 g/dL (32.0-36.0); Mean Corpuscular Hemoglobin 30.2 pg (27.0-31.0); Mean Corpuscular Volume 96.9 fL (78.0-98.0); Mean Platelet Volume 7.5 fL (7.4-10.4); Platelet Count 370 thou/uL (130-400); RBC Distribution Width 13.9 % (11.5-14.5); Red Blood Cell (RBC) Count 2.61 mill/uL (4.20-5.40); White Blood Cell (WBC) Count 11.1 thou/uL (4.8-10.8)
[2020-09-28 07:37] VITALS: BMI 27.8
[2020-09-28] MEDS: Sodium Chloride 0.9% 1,000 ML IV SCH ×2 (07:39→18:11)
[2020-09-28] MEDS: Fluconazole 100 MG TAB PO SCH (08:18)
[2020-09-28] MEDS: Gabapentin 300 MG CAP PO SCH ×2 (08:19→20:08)
[2020-09-28] MEDS: Cefepime 2 GM in Sodium Chloride 0.9% 100 ML IVPB SCH ×2 (08:19→20:09)
[2020-09-28] MEDS: Bupropion 150 MG XL TAB PO SCH (08:19)
[2020-09-28] MEDS: Enoxaparin Sodium 40 MG/0.4 ML SYRINGE SC SCH (08:20)
[2020-09-28] MEDS ORDERED: Lactinex Tablet PO SCH (09:00)
[2020-09-28] MEDS: Floranex Packet PO SCH (09:46)
[2020-09-28] MEDS: Vancomycin 1.5 GRAM/300 ML BAG 1.5 GM in Premix Bag 1 BAG IVPB SCH ×2 (09:46→18:51)
[2020-09-28 13:39] LABS: SARS-CoV-2 PCR by NAA Not Detected (NotDetected)
[2020-09-28] MEDS ORDERED: GoLYTELY 4,000 ml Bottle PO SCH (17:00)
[2020-09-28] MEDS: Calcium Carbonate 600 MG + Vit D TAB PO SCH (20:08)
[2020-09-28] MEDS ORDERED: Non-Formulary Item 1 EACH (Biotin [Biotin] 10,000 MCG Capsule) PO SCH (21:00)
[2020-09-29] MEDS: Sodium Chloride 0.9% 1,000 ML IV SCH ×3 (00:40→14:56)
[2020-09-29] MEDS: Cefepime 2 GM in Sodium Chloride 0.9% 100 ML IVPB SCH ×2 (05:31→18:17)
[2020-09-29] MEDS: Vancomycin 1.5 GRAM/300 ML BAG 1.5 GM in Premix Bag 1 BAG IVPB SCH ×2 (05:53→19:55)
[2020-09-29 06:22] LABS: Iron 8 ug/dL (50-170); Iron Binding Capacity, Total 109 mcg/dL (265-497)
[2020-09-29 06:45] LABS: Ferritin 163.09 ng/mL (10-291)
[2020-09-29] MEDS: Gabapentin 300 MG CAP PO SCH ×2 (08:14→20:14)
[2020-09-29] MEDS: Fluconazole 100 MG TAB PO SCH (08:14)
[2020-09-29] MEDS: Bupropion 150 MG XL TAB PO SCH (08:15)
[2020-09-29] MEDS: Enoxaparin Sodium 40 MG/0.4 ML SYRINGE SC SCH (08:23)
[2020-09-29] MEDS: Floranex Packet PO SCH (08:23)
[2020-09-29] MEDS ORDERED: PROPOFOL 200 MG/20 ML VIAL ONE (12:36)
[2020-09-29] MEDS: Diphenoxylate HCl/Atropine Tablet PO SCH ×2 (14:56→21:44)
[2020-09-29 18:27] LABS: Vancomycin, Trough 37.9 ug/mL
[2020-09-29] MEDS: traMADol HCl 50 MG TAB PO PRN (18:53)
[2020-09-29] MEDS: Calcium Carbonate 600 MG + Vit D TAB PO SCH (20:13)
[2020-09-30] MEDS: Sodium Chloride 0.9% 1,000 ML IV SCH ×3 (00:43→15:40)
[2020-09-30] MEDS: traMADol HCl 50 MG TAB PO PRN ×3 (01:04→20:44)
[2020-09-30] MEDS: Diphenoxylate HCl/Atropine Tablet PO SCH ×3 (06:28→20:44)
[2020-09-30 06:54] LABS: #Eosinphils 0.2 thou/uL (0.0-0.7); #Monocytes 0.7 thou/uL (0.11-0.59); #Neutrophils 4.4 thou/uL (1.40-6.50); %Basophils 0.3 % (0.0-1.0); %Eosinophils 2.3 % (0.0-10.0); %Lymphocytes 27.6 % (21.0-51.0); %Monocytes 9.4 % (0.0-10.0); %Neutrophils 60.4 % (42.0-75.0); Hemoglobin 7.7 g/dL (12.0-16.0); Mean Corpuscular Hemoglobin 31.8 pg (27.0-31.0); Mean Corpuscular Volume 96.4 fL (78.0-98.0); Mean Platelet Volume 7.9 fL (7.4-10.4); Platelet Count 404 thou/uL (130-400); RBC Distribution Width 13.9 % (11.5-14.5); Red Blood Cell (RBC) Count 2.41 mill/uL (4.20-5.40); White Blood Cell (WBC) Count 7.2 thou/uL (4.8-10.8)
[2020-09-30 07:25] LABS: Anion Gap 12 mmol/L (10-20); BUN (Urea Nitrogen) 5 mg/dL (9.8-20.1); Calc. Creatinine Clearance 78 mL/min (70-130); Calcium 7.5 mg/dL (7.8-10.44); Carbon Dioxide 19 mmol/L (23-31); Chloride 114 mmol/L (98-107); Glucose 64 mg/dL (83-110); Sodium 142 mmol/L (136-145)
[2020-09-30] MEDS: Cefepime 2 GM in Sodium Chloride 0.9% 100 ML IVPB SCH ×2 (09:50→18:13)
[2020-09-30] MEDS: Bupropion 150 MG XL TAB PO SCH (09:51)
[2020-09-30] MEDS: Floranex Packet PO SCH (09:51)
[2020-09-30] MEDS: Enoxaparin Sodium 40 MG/0.4 ML SYRINGE SC SCH (09:54)
[2020-09-30] MEDS: Citrucel 500 MG TAB PO SCH (09:54)
[2020-09-30] MEDS: Gabapentin 300 MG CAP PO SCH ×2 (09:55→20:44)
[2020-09-30] MEDS: Fluconazole 100 MG TAB PO SCH (10:04)
[2020-09-30 11:45] LABS: EliA Celiac New Method **** NEW METHOD ****; t-Transglutaminase (tTG) IgA 0.6 EliAU/mL (<7 Negative)
[2020-09-30] MEDS: Ondansetron PF 4 MG/2 ML Vial IVP PRN (13:00)
[2020-09-30] MEDS: HYDROcodone/Acetaminophen 5/325 mg Tablet PO PRN (15:43)
[2020-09-30] MEDS: Cholestyramine/Aspartame 4 gm Packet PO SCH (18:12)
[2020-09-30 18:40] LABS: Vancomycin, Trough 15.4 ug/mL
[2020-09-30] MEDS: Vancomycin 1.5 GRAM/300 ML BAG 1.5 GM in Premix Bag 1 BAG IVPB SCH ×2 (20:37→20:43)
[2020-09-30] MEDS: Calcium Carbonate 600 MG + Vit D TAB PO SCH (20:43)
[2020-10-01] MEDS: Sodium Chloride 0.9% 1,000 ML IV SCH ×3 (02:39→21:31)
[2020-10-01 05:28] LABS: #Basophils 0.1 thou/uL (0.0-0.2); #Eosinphils 0.3 thou/uL (0.0-0.7); #Lymphocytes 2.3 thou/uL (1.20-3.40); #Monocytes 0.8 thou/uL (0.11-0.59); #Neutrophils 4.4 thou/uL (1.40-6.50); %Basophils 1.2 % (0.0-1.0); %Eosinophils 3.3 % (0.0-10.0); %Lymphocytes 29.6 % (21.0-51.0); Hemoglobin 8.6 g/dL (12.0-16.0); Mean Corpuscular HGB CONC 32.8 g/dL (32.0-36.0); Mean Corpuscular Hemoglobin 31.1 pg (27.0-31.0); Mean Corpuscular Volume 94.7 fL (78.0-98.0); Mean Platelet Volume 7.2 fL (7.4-10.4); Platelet Count 435 thou/uL (130-400); RBC Distribution Width 14.2 % (11.5-14.5); Red Blood Cell (RBC) Count 2.76 mill/uL (4.20-5.40); White Blood Cell (WBC) Count 7.8 thou/uL (4.8-10.8)
[2020-10-01 05:50] LABS: Anion Gap 10 mmol/L (10-20); BUN (Urea Nitrogen) 5 mg/dL (9.8-20.1); Calc. Creatinine Clearance 74 mL/min (70-130); Calcium 7.7 mg/dL (7.8-10.44); Carbon Dioxide 23 mmol/L (23-31); Chloride 113 mmol/L (98-107); Glucose 82 mg/dL (83-110); Sodium 143 mmol/L (136-145)
[2020-10-01 05:53] LABS: Potassium 2.8 mmol/L (3.5-5.1)
[2020-10-01] MEDS: Diphenoxylate HCl/Atropine Tablet PO SCH ×3 (06:11→21:33)
[2020-10-01] MEDS: traMADol HCl 50 MG TAB PO PRN ×3 (06:12→18:22)
[2020-10-01] MEDS: Cholestyramine/Aspartame 4 gm Packet PO SCH ×2 (06:13→17:55)
[2020-10-01] MEDS: Cefepime 2 GM in Sodium Chloride 0.9% 100 ML IVPB SCH ×2 (06:14→17:55)
[2020-10-01] MEDS ORDERED: Electrolyte Replacement Protocol 1 EACH FS PRN (06:40)
[2020-10-01] MEDS: Gabapentin 300 MG CAP PO SCH ×2 (08:27→21:33)
[2020-10-01] MEDS: Bupropion 150 MG XL TAB PO SCH (08:31)
[2020-10-01] MEDS: Fluconazole 100 MG TAB PO SCH (08:33)
[2020-10-01] MEDS: Ondansetron PF 4 MG/2 ML Vial IVP PRN ×2 (08:33→17:54)
[2020-10-01] MEDS: Enoxaparin Sodium 40 MG/0.4 ML SYRINGE SC SCH (08:37)
[2020-10-01] MEDS: Acetaminophen 325 MG TAB PO PRN ×2 (08:40→12:07)
[2020-10-01] MEDS: Citrucel 500 MG TAB PO SCH (08:40)
[2020-10-01] MEDS: Potassium Chloride 20 MEQ TAB PO SCH ×2 (08:40→12:03)
[2020-10-01] MEDS: Floranex Packet PO SCH (08:40)
[2020-10-01] MEDS: Vancomycin 1.5 GRAM/300 ML BAG 1.5 GM in Premix Bag 1 BAG IVPB SCH (21:32)
[2020-10-01] MEDS: Calcium Carbonate 600 MG + Vit D TAB PO SCH (21:33)
[2020-10-01] MEDS: Scopolamine 1.5 mg/72 hour Patch TD SCH (21:55)
[2020-10-02] MEDS: Cholestyramine/Aspartame 4 gm Packet PO SCH ×2 (06:04→17:23)
[2020-10-02] MEDS: Diphenoxylate HCl/Atropine Tablet PO SCH (06:04)
[2020-10-02] MEDS: Sodium Chloride 0.9% 1,000 ML IV SCH ×3 (06:04→19:21)
[2020-10-02] MEDS: Cefepime 2 GM in Sodium Chloride 0.9% 100 ML IVPB SCH ×2 (06:29→18:33)
[2020-10-02] MEDS: Enoxaparin Sodium 40 MG/0.4 ML SYRINGE SC SCH (08:10)
[2020-10-02] MEDS: Bupropion 150 MG XL TAB PO SCH (08:10)
[2020-10-02] MEDS: Fluconazole 100 MG TAB PO SCH (08:11)
[2020-10-02] MEDS: Gabapentin 300 MG CAP PO SCH ×2 (08:11→21:13)
[2020-10-02] MEDS: Floranex Packet PO SCH (08:11)
[2020-10-02] MEDS: Citrucel 500 MG TAB PO SCH ×2 (08:43→15:30)
[2020-10-02] MEDS: Ondansetron PF 4 MG/2 ML Vial IVP PRN ×3 (10:08→21:13)
[2020-10-02] MEDS: traMADol HCl 50 MG TAB PO PRN ×2 (10:18→21:13)
[2020-10-02 20:45] LABS: Vancomycin, Trough 19.1 ug/mL
[2020-10-02] MEDS: Calcium Carbonate 600 MG + Vit D TAB PO SCH (21:13)
[2020-10-02] MEDS: VANCOMYCIN 1.25 GM/250 ML BAG 1.25 GM in Premix Bag 1 BAG IVPB SCH (21:14)
[2020-10-02] MEDS: Acetaminophen 325 MG TAB PO PRN (23:33)
[2020-10-02] MEDS: tiZANidine HCl 4 MG TAB PO PRN (23:34)
[2020-10-03 04:57] LABS: #Eosinphils 0.2 thou/uL (0.0-0.7); #Lymphocytes 2.8 thou/uL (1.20-3.40); #Monocytes 0.8 thou/uL (0.11-0.59); #Neutrophils 3.9 thou/uL (1.40-6.50); %Basophils 0.5 % (0.0-1.0); %Eosinophils 2.5 % (0.0-10.0); %Lymphocytes 35.9 % (21.0-51.0); %Neutrophils 51.1 % (42.0-75.0); Mean Corpuscular HGB CONC 31.2 g/dL (32.0-36.0); Mean Corpuscular Hemoglobin 29.9 pg (27.0-31.0); Mean Corpuscular Volume 95.6 fL (78.0-98.0); Mean Platelet Volume 7.4 fL (7.4-10.4); Platelet Count 402 thou/uL (130-400); RBC Distribution Width 14.5 % (11.5-14.5); Red Blood Cell (RBC) Count 2.68 mill/uL (4.20-5.40); White Blood Cell (WBC) Count 7.7 thou/uL (4.8-10.8)
[2020-10-03 05:21] LABS: BUN (Urea Nitrogen) 7 mg/dL (9.8-20.1); Calc. Creatinine Clearance 73 mL/min (70-130); Calcium 7.7 mg/dL (7.8-10.44); Carbon Dioxide 22 mmol/L (23-31); Glucose 85 mg/dL (83-110)
[2020-10-03 05:30] LABS: Anion Gap 10 mmol/L (10-20); Chloride 115 mmol/L (98-107); Potassium 3.3 mmol/L (3.5-5.1); Sodium 142 mmol/L (136-145)
[2020-10-03] MEDS: Cefepime 2 GM in Sodium Chloride 0.9% 100 ML IVPB SCH ×2 (06:43→18:00)
[2020-10-03] MEDS ORDERED: Potassium Chloride 20 MEQ TAB PO SCH (07:00)
[2020-10-03] MEDS: Cholestyramine/Aspartame 4 gm Packet PO SCH ×2 (08:27→15:51)
[2020-10-03] MEDS: Enoxaparin Sodium 40 MG/0.4 ML SYRINGE SC SCH (10:30)
[2020-10-03] MEDS: Sodium Chloride 0.9% 1,000 ML IV SCH ×4 (10:30→23:50)
[2020-10-03] MEDS: Ondansetron PF 4 MG/2 ML Vial IVP PRN ×2 (10:34→15:42)
[2020-10-03] MEDS: Fluconazole 100 MG TAB PO SCH (10:39)
[2020-10-03] MEDS: Bupropion 150 MG XL TAB PO SCH (10:40)
[2020-10-03] MEDS: Citrucel 500 MG TAB PO SCH (10:41)
[2020-10-03] MEDS: Gabapentin 300 MG CAP PO SCH ×2 (10:41→20:34)
[2020-10-03] MEDS: Floranex Packet PO SCH (10:41)
[2020-10-03] MEDS: traMADol HCl 50 MG TAB PO PRN (10:46)
[2020-10-03] MEDS: Diphenoxylate HCl/Atropine Tablet PO SCH (10:46)
[2020-10-03] MEDS: VANCOMYCIN 1.25 GM/250 ML BAG 1.25 GM in Premix Bag 1 BAG IVPB SCH (20:33)
[2020-10-03] MEDS: Calcium Carbonate 600 MG + Vit D TAB PO SCH (20:33)
[2020-10-04] MEDS: tiZANidine HCl 4 MG TAB PO PRN ×2 (00:48→23:55)
[2020-10-04] MEDS: traMADol HCl 50 MG TAB PO PRN ×3 (00:49→23:55)
[2020-10-04] MEDS: Sodium Chloride 0.9% 1,000 ML IV SCH ×3 (03:26→19:47)
[2020-10-04 05:45] LABS: #Eosinphils 0.2 thou/uL (0.0-0.7); #Lymphocytes 2.6 thou/uL (1.20-3.40); #Monocytes 1.1 thou/uL (0.11-0.59); #Neutrophils 6.2 thou/uL (1.40-6.50); %Basophils 0.4 % (0.0-1.0); %Eosinophils 2.2 % (0.0-10.0); %Lymphocytes 25.4 % (21.0-51.0); %Monocytes 10.9 % (0.0-10.0); %Neutrophils 61.2 % (42.0-75.0); Hemoglobin 8.9 g/dL (12.0-16.0); Mean Corpuscular HGB CONC 31.9 g/dL (32.0-36.0); Mean Corpuscular Hemoglobin 30.4 pg (27.0-31.0); Mean Corpuscular Volume 95.3 fL (78.0-98.0); Mean Platelet Volume 7.4 fL (7.4-10.4); Platelet Count 411 thou/uL (130-400); RBC Distribution Width 14.5 % (11.5-14.5); Red Blood Cell (RBC) Count 2.92 mill/uL (4.20-5.40); White Blood Cell (WBC) Count 10.2 thou/uL (4.8-10.8)
[2020-10-04 06:05] LABS: Anion Gap 11 mmol/L (10-20); BUN (Urea Nitrogen) 6 mg/dL (9.8-20.1); Calc. Creatinine Clearance 72 mL/min (70-130); Calcium 7.7 mg/dL (7.8-10.44); Carbon Dioxide 19 mmol/L (23-31); Chloride 114 mmol/L (98-107); Glucose 89 mg/dL (83-110); Potassium 3.2 mmol/L (3.5-5.1); Sodium 141 mmol/L (136-145)
[2020-10-04] MEDS: Cefepime 2 GM in Sodium Chloride 0.9% 100 ML IVPB SCH (06:55)
[2020-10-04] MEDS: Cholestyramine/Aspartame 4 gm Packet PO SCH ×2 (06:56→16:33)
[2020-10-04] MEDS ORDERED: Potassium Chloride 20 MEQ TAB PO SCH (07:30)
[2020-10-04] MEDS: Floranex Packet PO SCH (09:04)
[2020-10-04] MEDS: Enoxaparin Sodium 40 MG/0.4 ML SYRINGE SC SCH (09:06)
[2020-10-04] MEDS: Diphenoxylate HCl/Atropine Tablet PO SCH (09:07)
[2020-10-04] MEDS: Citrucel 500 MG TAB PO SCH (09:07)
[2020-10-04] MEDS: Fluconazole 100 MG TAB PO SCH (09:08)
[2020-10-04] MEDS: Gabapentin 300 MG CAP PO SCH ×2 (09:08→19:49)
[2020-10-04] MEDS: Bupropion 150 MG XL TAB PO SCH (09:08)
[2020-10-04] MEDS: Ondansetron PF 4 MG/2 ML Vial IVP PRN ×2 (09:18→16:44)
[2020-10-04] MEDS: Calcium Carbonate 600 MG + Vit D TAB PO SCH (19:48)
[2020-10-04 20:39] LABS: Vancomycin, Trough 18.6 ug/mL
[2020-10-04] MEDS: Scopolamine 1.5 mg/72 hour Patch TD SCH (22:31)
[2020-10-04] MEDS: Acetaminophen 325 MG TAB PO PRN (23:56)
[2020-10-05] MEDS: Sodium Chloride 0.9% 1,000 ML IV SCH ×3 (03:52→20:02)
[2020-10-05] MEDS: Cholestyramine/Aspartame 4 gm Packet PO SCH ×2 (07:39→16:47)
[2020-10-05] MEDS: Gabapentin 300 MG CAP PO SCH ×2 (09:16→20:04)
[2020-10-05] MEDS: Floranex Packet PO SCH (09:16)
[2020-10-05] MEDS: Bupropion 150 MG XL TAB PO SCH (09:17)
[2020-10-05] MEDS: Citrucel 500 MG TAB PO SCH (09:18)
[2020-10-05] MEDS: Enoxaparin Sodium 40 MG/0.4 ML SYRINGE SC SCH (09:18)
[2020-10-05] MEDS: Diphenoxylate HCl/Atropine Tablet PO SCH (09:18)
[2020-10-05] MEDS: Acetaminophen 325 MG TAB PO PRN (14:38)
[2020-10-05] MEDS: traMADol HCl 50 MG TAB PO PRN ×2 (14:39→22:40)
[2020-10-05] MEDS: Calcium Carbonate 600 MG + Vit D TAB PO SCH (20:03)
[2020-10-05] MEDS: Lisinopril 20 MG TAB PO SCH (20:03)
[2020-10-05] MEDS: Aspirin 81 mg Enteric Coated Tablet PO SCH (20:03)
[2020-10-05] MEDS: Multivit, Therapeutic 1 TAB PO SCH (20:04)
[2020-10-06] MEDS: traMADol HCl 50 MG TAB PO PRN ×3 (04:46→21:12)
[2020-10-06] MEDS: Sodium Chloride 0.9% 1,000 ML IV SCH (06:16)
[2020-10-06] MEDS: Cholestyramine/Aspartame 4 gm Packet PO SCH ×2 (06:22→16:48)
[2020-10-06] MEDS: Floranex Packet PO SCH (09:06)
[2020-10-06] MEDS: Bupropion 150 MG XL TAB PO SCH (09:06)
[2020-10-06] MEDS: Citrucel 500 MG TAB PO SCH (09:07)
[2020-10-06] MEDS: Amlodipine 5 MG TAB PO SCH (09:07)
[2020-10-06] MEDS: Diphenoxylate HCl/Atropine Tablet PO SCH (09:08)
[2020-10-06] MEDS: Famotidine 20 MG TAB PO SCH (09:08)
[2020-10-06] MEDS: Enoxaparin Sodium 40 MG/0.4 ML SYRINGE SC SCH (09:08)
[2020-10-06] MEDS: Gabapentin 300 MG CAP PO SCH ×2 (09:08→19:56)
[2020-10-06] MEDS: Aspirin 81 mg Enteric Coated Tablet PO SCH (19:56)
[2020-10-06] MEDS: Lisinopril 20 MG TAB PO SCH (19:56)
[2020-10-06] MEDS: Calcium Carbonate 600 MG + Vit D TAB PO SCH (19:57)
[2020-10-06] MEDS: Multivit, Therapeutic 1 TAB PO SCH (19:57)
[2020-10-07] MEDS: Famotidine 20 MG TAB PO SCH (08:08)
[2020-10-07] MEDS: Citrucel 500 MG TAB PO SCH (08:08)
[2020-10-07] MEDS: Diphenoxylate HCl/Atropine Tablet PO SCH (08:09)
[2020-10-07] MEDS: Bupropion 150 MG XL TAB PO SCH (08:09)
[2020-10-07] MEDS: Floranex Packet PO SCH (08:09)
[2020-10-07] MEDS: Amlodipine 5 MG TAB PO SCH (08:09)
[2020-10-07] MEDS: Gabapentin 300 MG CAP PO SCH ×2 (08:09→19:53)
[2020-10-07] MEDS: Enoxaparin Sodium 40 MG/0.4 ML SYRINGE SC SCH (08:10)
[2020-10-07] MEDS: traMADol HCl 50 MG TAB PO PRN ×3 (08:18→21:24)
[2020-10-07] MEDS: Cholestyramine/Aspartame 4 gm Packet PO SCH ×2 (08:52→15:30)
[2020-10-07] MEDS: Ondansetron PF 4 MG/2 ML Vial IVP PRN ×2 (15:26→21:24)
[2020-10-07] MEDS: Lisinopril 20 MG TAB PO SCH (19:52)
[2020-10-07] MEDS: Calcium Carbonate 600 MG + Vit D TAB PO SCH (19:52)
[2020-10-07] MEDS: Multivit, Therapeutic 1 TAB PO SCH (19:53)
[2020-10-07] MEDS: Aspirin 81 mg Enteric Coated Tablet PO SCH (19:53)
[2020-10-07] MEDS: Acetaminophen 325 MG TAB PO PRN (23:51)
[2020-10-08] MEDS: Famotidine 20 MG TAB PO SCH (08:51)
[2020-10-08] MEDS: Floranex Packet PO SCH (08:51)
[2020-10-08] MEDS: Enoxaparin Sodium 40 MG/0.4 ML SYRINGE SC SCH (08:51)
[2020-10-08] MEDS: Citrucel 500 MG TAB PO SCH (08:51)
[2020-10-08] MEDS: Diphenoxylate HCl/Atropine Tablet PO SCH (08:51)
[2020-10-08] MEDS: Gabapentin 300 MG CAP PO SCH ×2 (08:52→20:07)
[2020-10-08] MEDS: Bupropion 150 MG XL TAB PO SCH (08:52)
[2020-10-08] MEDS: Amlodipine 5 MG TAB PO SCH (08:53)
[2020-10-08] MEDS: traMADol HCl 50 MG TAB PO PRN ×3 (11:02→22:04)
[2020-10-08] MEDS: Acetaminophen 325 MG TAB PO PRN ×2 (15:32→23:51)
[2020-10-08] MEDS: Cholestyramine/Aspartame 4 gm Packet PO SCH ×2 (17:41→18:03)
[2020-10-08] MEDS: Lisinopril 20 MG TAB PO SCH (20:07)
[2020-10-08] MEDS: Aspirin 81 mg Enteric Coated Tablet PO SCH (20:09)
[2020-10-08] MEDS: Multivit, Therapeutic 1 TAB PO SCH (20:09)
[2020-10-08] MEDS: Calcium Carbonate 600 MG + Vit D TAB PO SCH (20:13)
[2020-10-09] MEDS: traMADol HCl 50 MG TAB PO PRN ×3 (05:13→23:52)
[2020-10-09] MEDS: Cholestyramine/Aspartame 4 gm Packet PO SCH ×2 (06:52→19:35)
[2020-10-09] MEDS: Ondansetron PF 4 MG/2 ML Vial IVP PRN ×3 (07:59→23:50)
[2020-10-09] MEDS: Citrucel 500 MG TAB PO SCH (10:32)
[2020-10-09] MEDS: Famotidine 20 MG TAB PO SCH (10:32)
[2020-10-09] MEDS: Gabapentin 300 MG CAP PO SCH ×2 (10:33→21:14)
[2020-10-09] MEDS: Amlodipine 5 MG TAB PO SCH (10:34)
[2020-10-09] MEDS: Bupropion 150 MG XL TAB PO SCH (10:34)
[2020-10-09] MEDS: Enoxaparin Sodium 40 MG/0.4 ML SYRINGE SC SCH (10:35)
[2020-10-09] MEDS: Floranex Packet PO SCH (10:35)
[2020-10-09] MEDS: Diphenoxylate HCl/Atropine Tablet PO SCH (10:47)
[2020-10-09] MEDS: Acetaminophen 325 MG TAB PO PRN ×2 (16:06→21:24)
[2020-10-09] MEDS: Aspirin 81 mg Enteric Coated Tablet PO SCH (21:15)
[2020-10-09] MEDS: Calcium Carbonate 600 MG + Vit D TAB PO SCH (21:16)
[2020-10-09] MEDS: Multivit, Therapeutic 1 TAB PO SCH (21:16)
[2020-10-09] MEDS: Lisinopril 20 MG TAB PO SCH (21:16)
[2020-10-10] MEDS: Acetaminophen 325 MG TAB PO PRN ×2 (00:36→16:03)
[2020-10-10] MEDS: Loperamide HCl 2 MG CAP PO PRN ×2 (01:53→03:56)
[2020-10-10] MEDS: Cholestyramine/Aspartame 4 gm Packet PO SCH ×2 (06:56→19:20)
[2020-10-10] MEDS: Enoxaparin Sodium 40 MG/0.4 ML SYRINGE SC SCH (09:50)
[2020-10-10] MEDS: Ondansetron PF 4 MG/2 ML Vial IVP PRN (09:50)
[2020-10-10] MEDS ORDERED: Dextrose 50% Abboject 50 ML SYRINGE SLOW IVP PRN (11:55)
[2020-10-10] MEDS ORDERED: Dextrose 5% in Water 1,000 ML IV PRN (11:55)
[2020-10-10] MEDS: Dextrose 5 %-0.45 % NaCl 1,000 ML IV SCH (12:44)
[2020-10-10] MEDS: Scopolamine 1.5 mg/72 hour Patch TD SCH (12:48)
[2020-10-10] MEDS: Famotidine 20 MG TAB PO SCH (12:50)
[2020-10-10] MEDS: Diphenoxylate HCl/Atropine Tablet PO SCH ×3 (12:50→18:01)
[2020-10-10] MEDS: Amlodipine 5 MG TAB PO SCH (12:51)
[2020-10-10] MEDS: Bupropion 150 MG XL TAB PO SCH (12:53)
[2020-10-10] MEDS: Gabapentin 300 MG CAP PO SCH ×2 (12:55→20:23)
[2020-10-10] MEDS: Citrucel 500 MG TAB PO SCH (12:57)
[2020-10-10] MEDS: Floranex Packet PO SCH (12:59)
[2020-10-10 13:28] LABS: ALT (SGPT) 9 U/L (8-55); AST (SGOT) 14 U/L (5-34); Albumin 2.4 g/dL (3.4-4.8); Alkaline Phosphatase 111 U/L (40-110); Anion Gap 12 mmol/L (10-20); BUN (Urea Nitrogen) 11 mg/dL (9.8-20.1); Bilirubin, Total 0.2 mg/dL (0.2-1.2); Calc. Creatinine Clearance 72 mL/min (70-130); Calcium 7.8 mg/dL (7.8-10.44); Carbon Dioxide 24 mmol/L (23-31); Chloride 103 mmol/L (98-107); Globulin 3.2 g/dL (2.4-3.5); Glucose 85 mg/dL (83-110); Potassium 3.3 mmol/L (3.5-5.1); Protein, Total 5.6 g/dL (5.8-8.1); Sodium 136 mmol/L (136-145)
[2020-10-10] MEDS ORDERED: Potassium Chloride 20 MEQ TAB PO SCH (13:45)
[2020-10-10 15:32] LABS: Bilirubin Negative (Negative); Blood, Urine Trace (Negative); Clarity Turbid (Clear); Glucose, Urine (Dipstick) Normal (Negative); Ketone, Urine Negative (Negative); Leukocyte 500 Leu/uL (Negative); Nitrite 2+ (Negative); Protein, Urine (Dipstick) 50 mg/dL (Neg-Trace); Squamous Epithelial None Seen HPF (0-3); Transitional Epithelial 0-3 HPF (None Seen); Urobilinogen Normal mg/dL (Less than 2); WBC/HPF Greater than 50 HPF (0-3); pH, Urine 6.5 (5.0-9.0)
[2020-10-10 15:33] LABS: Bacteria/HPF 1+ HPF (None Seen)
[2020-10-10 15:34] LABS: Urine Culture Reflex Yes Yes
[2020-10-10] MEDS: traMADol HCl 50 MG TAB PO PRN ×2 (16:02→21:50)
[2020-10-10] MEDS: Calcium Carbonate 600 MG + Vit D TAB PO SCH (20:23)
[2020-10-10] MEDS: Aspirin 81 mg Enteric Coated Tablet PO SCH (20:23)
[2020-10-10] MEDS: Multivit, Therapeutic 1 TAB PO SCH (20:23)
[2020-10-10] MEDS: Lisinopril 20 MG TAB PO SCH (20:23)
[2020-10-10 20:38] LABS: Potassium 3.4 mmol/L (3.5-5.1)
[2020-10-11] MEDS: Dextrose 5 %-0.45 % NaCl 1,000 ML IV SCH ×2 (00:59→13:52)
[2020-10-11] MEDS: Diphenoxylate HCl/Atropine Tablet PO SCH ×5 (00:59→23:33)
[2020-10-11] MEDS: tiZANidine HCl 4 MG TAB PO PRN (00:59)
[2020-10-11] MEDS: traMADol HCl 50 MG TAB PO PRN ×3 (04:31→18:11)
[2020-10-11] MEDS: Cholestyramine/Aspartame 4 gm Packet PO SCH ×2 (06:48→18:09)
[2020-10-11 06:52] LABS: Hemoglobin 9.1 g/dL (12.0-16.0); Mean Corpuscular HGB CONC 32.7 g/dL (32.0-36.0); Mean Corpuscular Hemoglobin 30.8 pg (27.0-31.0); Mean Corpuscular Volume 94.3 fL (78.0-98.0); Mean Platelet Volume 7.8 fL (7.4-10.4); Platelet Count 402 thou/uL (130-400); RBC Distribution Width 14.3 % (11.5-14.5); Red Blood Cell (RBC) Count 2.95 mill/uL (4.20-5.40); White Blood Cell (WBC) Count 9.2 thou/uL (4.8-10.8)
[2020-10-11 06:57] LABS: Band 19 % (5-11); Eosinophils 1 % (0-10); Lymphocytes 16 % (21-51); MDiff Complete? YES; Monocytes 13 % (0-10); Neutrophil 51 % (42-75)
[2020-10-11] MEDS ORDERED: Potassium Chloride 20 MEQ TAB PO SCH (07:00)
[2020-10-11 07:09] LABS: Anion Gap 12 mmol/L (10-20); BUN (Urea Nitrogen) 10 mg/dL (9.8-20.1); Calc. Creatinine Clearance 69 mL/min (70-130); Calcium 7.9 mg/dL (7.8-10.44); Carbon Dioxide 25 mmol/L (23-31); Chloride 104 mmol/L (98-107); Glucose 98 mg/dL (83-110); Magnesium 1.7 mg/dL (1.6-2.6); Potassium 3.6 mmol/L (3.5-5.1); Sodium 137 mmol/L (136-145)
[2020-10-11] MEDS ORDERED: Magnesium 2 GM/50 ML 2 GM in Premix Bag 1 BAG IVPB SCH (08:15)
[2020-10-11] MEDS: Acetaminophen 325 MG TAB PO PRN ×2 (09:11→18:10)
[2020-10-11] MEDS: Citrucel 500 MG TAB PO SCH (09:17)
[2020-10-11] MEDS: Gabapentin 300 MG CAP PO SCH ×2 (09:18→21:29)
[2020-10-11] MEDS: Bupropion 150 MG XL TAB PO SCH (09:21)
[2020-10-11] MEDS: Enoxaparin Sodium 40 MG/0.4 ML SYRINGE SC SCH (09:22)
[2020-10-11] MEDS: Amlodipine 5 MG TAB PO SCH (09:23)
[2020-10-11] MEDS: Famotidine 20 MG TAB PO SCH (09:23)
[2020-10-11] MEDS: Floranex Packet PO SCH (09:24)
[2020-10-11] MEDS: Ondansetron PF 4 MG/2 ML Vial IVP PRN (11:38)
[2020-10-11] MEDS: Metoclopramide HCl 10 MG/2 ML VIAL IVP PRN ×2 (13:38→20:07)
[2020-10-11] MEDS: metroNIDAZOLE 500 MG in Premix Bag 1 BAG IVPB SCH ×2 (13:41→23:32)
[2020-10-11 14:54] LABS: Potassium 3.8 mmol/L (3.5-5.1)
[2020-10-11] MEDS: Lisinopril 20 MG TAB PO SCH (21:30)
[2020-10-11] MEDS: Aspirin 81 mg Enteric Coated Tablet PO SCH (21:31)
[2020-10-11] MEDS: Multivit, Therapeutic 1 TAB PO SCH (21:31)
[2020-10-11] MEDS: Calcium Carbonate 600 MG + Vit D TAB PO SCH (21:31)
[2020-10-12] MEDS: metroNIDAZOLE 500 MG in Premix Bag 1 BAG IVPB SCH ×3 (05:43→23:32)
[2020-10-12] MEDS: Dextrose 5 %-0.45 % NaCl 1,000 ML IV SCH ×3 (05:43→23:32)
[2020-10-12] MEDS: Diphenoxylate HCl/Atropine Tablet PO SCH ×4 (05:43→23:32)
[2020-10-12] MEDS: Gabapentin 300 MG CAP PO SCH ×2 (08:42→20:47)
[2020-10-12] MEDS: Citrucel 500 MG TAB PO SCH (08:44)
[2020-10-12] MEDS: Floranex Packet PO SCH (08:44)
[2020-10-12] MEDS: Bupropion 150 MG XL TAB PO SCH (08:44)
[2020-10-12] MEDS: Famotidine 20 MG TAB PO SCH (08:44)
[2020-10-12] MEDS: Cholestyramine/Aspartame 4 gm Packet PO SCH ×2 (08:45→18:28)
[2020-10-12] MEDS: Enoxaparin Sodium 40 MG/0.4 ML SYRINGE SC SCH (08:46)
[2020-10-12] MEDS: Amlodipine 5 MG TAB PO SCH (08:47)
[2020-10-12] MEDS ORDERED: Magnesium 2 GM/50 ML 2 GM in Premix Bag 1 BAG IVPB SCH (09:45)
[2020-10-12] MEDS: traMADol HCl 50 MG TAB PO PRN ×2 (12:33→20:46)
[2020-10-12] MEDS: Calcium Carbonate 600 MG + Vit D TAB PO SCH (20:47)
[2020-10-12] MEDS: Lisinopril 20 MG TAB PO SCH (20:47)
[2020-10-12] MEDS: Aspirin 81 mg Enteric Coated Tablet PO SCH (20:47)
[2020-10-12] MEDS: Multivit, Therapeutic 1 TAB PO SCH (20:47)
[2020-10-12] MEDS: Cefepime 1 GM in Sodium Chloride 0.9% 100 ML IVPB SCH (20:48)
[2020-10-13] MEDS: metroNIDAZOLE 500 MG in Premix Bag 1 BAG IVPB SCH ×3 (05:26→23:24)
[2020-10-13] MEDS: Diphenoxylate HCl/Atropine Tablet PO SCH ×4 (05:26→23:24)
[2020-10-13] MEDS: traMADol HCl 50 MG TAB PO PRN ×2 (05:29→17:45)
[2020-10-13] MEDS: Cholestyramine/Aspartame 4 gm Packet PO SCH ×2 (08:07→17:05)
[2020-10-13] MEDS: Enoxaparin Sodium 40 MG/0.4 ML SYRINGE SC SCH (09:58)
[2020-10-13] MEDS: Floranex Packet PO SCH (09:59)
[2020-10-13] MEDS: Citrucel 500 MG TAB PO SCH (09:59)
[2020-10-13] MEDS: Bupropion 150 MG XL TAB PO SCH (10:00)
[2020-10-13] MEDS: Famotidine 20 MG TAB PO SCH (10:00)
[2020-10-13] MEDS: Gabapentin 300 MG CAP PO SCH ×2 (10:02→20:26)
[2020-10-13] MEDS: Cefepime 1 GM in Sodium Chloride 0.9% 100 ML IVPB SCH ×2 (10:04→20:26)
[2020-10-13] MEDS: Amlodipine 5 MG TAB PO SCH (10:05)
[2020-10-13 10:13] LABS: Fatty Acid Droplets Normal (.); Neutral Fats And/Or Soaps Normal (.)
[2020-10-13] MEDS: Scopolamine 1.5 mg/72 hour Patch TD SCH (12:25)
[2020-10-13] MEDS: Dextrose 5 %-0.45 % NaCl 1,000 ML IV SCH (17:45)
[2020-10-13] MEDS ORDERED: SYSTANE GEL OPHTH DROPS 10 ML EA EYE PRN (19:26)
[2020-10-13] MEDS: Calcium Carbonate 600 MG + Vit D TAB PO SCH (20:26)
[2020-10-13] MEDS: Lisinopril 20 MG TAB PO SCH (20:26)
[2020-10-13] MEDS: Aspirin 81 mg Enteric Coated Tablet PO SCH (20:26)
[2020-10-13] MEDS: Multivit, Therapeutic 1 TAB PO SCH (20:26)
[2020-10-14] MEDS: Cholestyramine/Aspartame 4 gm Packet PO SCH ×2 (05:13→16:55)
[2020-10-14] MEDS: metroNIDAZOLE 500 MG in Premix Bag 1 BAG IVPB SCH (05:14)
[2020-10-14] MEDS: Diphenoxylate HCl/Atropine Tablet PO SCH ×3 (05:16→18:31)
[2020-10-14] MEDS: Cefepime 1 GM in Sodium Chloride 0.9% 100 ML IVPB SCH (09:29)
[2020-10-14] MEDS: Enoxaparin Sodium 40 MG/0.4 ML SYRINGE SC SCH (09:29)
[2020-10-14] MEDS: Famotidine 20 MG TAB PO SCH (09:30)
[2020-10-14] MEDS: Bupropion 150 MG XL TAB PO SCH (09:30)
[2020-10-14] MEDS: Floranex Packet PO SCH (09:30)
[2020-10-14] MEDS: Gabapentin 300 MG CAP PO SCH ×2 (09:30→20:10)
[2020-10-14] MEDS: Citrucel 500 MG TAB PO SCH (09:30)
[2020-10-14] MEDS: Amlodipine 5 MG TAB PO SCH (09:30)
[2020-10-14] MEDS: Dextrose 5 %-0.45 % NaCl 1,000 ML IV SCH (09:48)
[2020-10-14] MEDS: Ondansetron PF 4 MG/2 ML Vial IVP PRN (11:02)
[2020-10-14] MEDS: traMADol HCl 50 MG TAB PO PRN ×2 (12:27→20:11)
[2020-10-14] MEDS: Calcium Carbonate 600 MG + Vit D TAB PO SCH (20:10)
[2020-10-14] MEDS: Lisinopril 20 MG TAB PO SCH (20:10)
[2020-10-14] MEDS: Aspirin 81 mg Enteric Coated Tablet PO SCH (20:10)
[2020-10-14] MEDS: Multivit, Therapeutic 1 TAB PO SCH (20:11)
[2020-10-15] MEDS: Diphenoxylate HCl/Atropine Tablet PO SCH ×3 (02:27→11:38)
[2020-10-15] MEDS: Acetaminophen 325 MG TAB PO PRN (05:54)
[2020-10-15] MEDS: Cholestyramine/Aspartame 4 gm Packet PO SCH ×2 (08:15→17:12)
[2020-10-15] MEDS ORDERED: Metamucil PACK PO SCH (09:00)
[2020-10-15] MEDS: Famotidine 20 MG TAB PO SCH (09:00)
[2020-10-15] MEDS: Bupropion 150 MG XL TAB PO SCH (09:01)
[2020-10-15] MEDS: Gabapentin 300 MG CAP PO SCH (09:01)
[2020-10-15] MEDS: Amlodipine 5 MG TAB PO SCH (09:03)
[2020-10-15] MEDS: Floranex Packet PO SCH (09:03)
[2020-10-15] MEDS: Citrucel 500 MG TAB PO SCH (09:05)
[2020-10-15] MEDS: Enoxaparin Sodium 40 MG/0.4 ML SYRINGE SC SCH (09:05)
[2020-10-15 15:16] VITALS: BP 142/75; TEMP 98.3
[2020-10-15] MEDS: traMADol HCl 50 MG TAB PO PRN (16:05)
== END 2020-10-15 17:15 | DRG 593 ==
LOC: ERS 16:09 → SURG A 18:55
PROVIDERS: ADMIT Family Medicine; ATTEND Hospitalist
PROC: 0DBK8ZX Excision of Ascending Colon, Via Natural or Artificial Opening Endoscopic, Diagnostic (ICD-10-PCS; principal; 2020-09-29)
PROC: 0DBM8ZX Excision of Descending Colon, Via Natural or Artificial Opening Endoscopic, Diagnostic (ICD-10-PCS; 2020-09-29)
DX: L89.154 Pressure ulcer of sacral region, stage 4 (principal); T83.518A Infection and inflammatory reaction due to other urinary catheter, initial encounter; N39.0 Urinary tract infection, site not specified; R18.8 Other ascites; L97.922 Non-pressure chronic ulcer of unspecified part of left lower leg with fat layer exposed; M35.03 Sjogren syndrome with myopathy; Z79.51 Long term (current) use of inhaled steroids; Z20.822 Contact with and (suspected) exposure to COVID-19; K52.9 Noninfective gastroenteritis and colitis, unspecified; Y84.6 Urinary catheterization as the cause of abnormal reaction of the patient, or of later complication, without mention of misadventure at the time of the procedure; I10 Essential (primary) hypertension; F32.9 Major depressive disorder, single episode, unspecified; Z60.2 Problems related to living alone; G89.4 Chronic pain syndrome; S90.32XA Contusion of left foot, initial encounter; S90.31XA Contusion of right foot, initial encounter; D64.9 Anemia, unspecified; F44.4 Conversion disorder with motor symptom or deficit; K57.30 Diverticulosis of large intestine without perforation or abscess without bleeding; E11.51 Type 2 diabetes mellitus with diabetic peripheral angiopathy without gangrene; B96.5 Pseudomonas (aeruginosa) (mallei) (pseudomallei) as the cause of diseases classified elsewhere; R15.9 Full incontinence of feces; Z80.6 Family history of leukemia; S29.9XXS Unspecified injury of thorax, sequela; V80.010S Animal-rider injured by fall from or being thrown from horse in noncollision accident, sequela; Z88.1 Allergy status to other antibiotic agents; Z88.5 Allergy status to narcotic agent; Z88.2 Allergy status to sulfonamides; Z88.8 Allergy status to other drugs, medicaments and biological substances; Z79.899 Other long term (current) drug therapy; Z79.82 Long term (current) use of aspirin; Z80.0 Family history of malignant neoplasm of digestive organs; Z86.19 Personal history of other infectious and parasitic diseases; Z83.3 Family history of diabetes mellitus; Z74.01 Bed confinement status
CPT/HCPCS: 36415; 36416; 72193; 72197; 74176; 80048; 80053; 80202; 81001; 82607; 82705; 82728; 82746; 83516; 83540; 83550; 83605; 83630; 83735; 85025; 85652; 86140; 87040; 87045; 87046; 87077; 87086; 87186; 87324; 87427; 87449; 87635; 88305; 96365; 96366; 96367; J0692; J1650; J1956; J2405; J2704; J2765; J3370; J3475; J3490; Q9967; U0003; U0005

== ENCOUNTER 2021-10-22 07:40 | Day surgery (SDC) | payer MEDICARE ==
[2021-10-20 11:18] VITALS: BMI 19.7
[2021-10-22] MEDS ORDERED: PROPOFOL 200 MG/20 ML VIAL ONE (09:55)
[2021-10-22] MEDS ORDERED: Lidocaine 1% PF 5 ML VIAL ONE (09:55)
== END 2021-10-22 11:10 | disposition home or self-care (01) ==
LOC: SDC 07:40
PROVIDERS: ATTEND Internal Medicine
PROC: 3E0H8GC Introduction of Other Therapeutic Substance into Lower GI, Via Natural or Artificial Opening Endoscopic (ICD-10-PCS; principal; 2021-10-22)
DX: A04.71 Enterocolitis due to Clostridium difficile, recurrent (principal); K57.30 Diverticulosis of large intestine without perforation or abscess without bleeding; E11.9 Type 2 diabetes mellitus without complications; G82.20 Paraplegia, unspecified; M35.00 Sjogren syndrome, unspecified; Z79.82 Long term (current) use of aspirin; Z79.899 Other long term (current) drug therapy; Z88.0 Allergy status to penicillin; Z88.2 Allergy status to sulfonamides; Z88.5 Allergy status to narcotic agent; Z88.8 Allergy status to other drugs, medicaments and biological substances
CPT/HCPCS: J2704